=== PATIENT | female | born 1945 | race Caucasian/White ===

== ENCOUNTER → 2017-10-10 | Outpatient (CLI) | payer MEDICARE, OTHER ==
[~2017-10-10] MED LIST: CODACE30 PO; RXCODACET PO
== END | disposition home or self-care (01) ==
LOC: LAB SHORT 13:00 → LAB 13:00
DX: N39.0 Urinary tract infection, site not specified (principal)
CPT/HCPCS: 87077; 87086; 87186

== ENCOUNTER → 2017-11-10 | Outpatient (CLI) | payer MEDICARE, OTHER | LOC: LAB SHORT 13:00 → LAB 13:00 | DX: R30.0 Dysuria (principal) | CPT/HCPCS: 87077; 87086; 87186 ==

== ENCOUNTER → 2018-09-02 | Outpatient (CLI) | payer MEDICARE, OTHER ==
[~2018-09-02] MED LIST changes: +ACYC400 PO; +AMOCLA500; +FLUC150A PO; +LOSA25 PO; +Metformin HCl850 MG PO; +PREMARIN VAGINAL CRE; +Pravastatin Sod40 MG PO; +Zofran Odt8 MG SL
== END | disposition home or self-care (01) ==
LOC: LAB SHORT 14:30 → LAB EV 14:30
DX: N12 Tubulo-interstitial nephritis, not specified as acute or chronic (principal)
CPT/HCPCS: 87077; 87086; 87186

== ENCOUNTER 2019-03-06 14:35 | Observation (INO) | payer MEDICARE, OTHER ==
[~2019-03-06] VITALS: Ht 162.6 cm; Wt 81.4 kg
[~2019-03-06 14:35] MED LIST changes: -Pravastatin Sod40 MG PO; +Pravastatin Sod80 MG PO
[2019-03-06 15:12] LABS: BASOPHILS ABSOLUTE AUTO 0.07 K/mm3 (0.00-0.23); BASOPHILS PERCENT AUTO 1 % (0-2); EOSINOPHILS ABSOLUTE AUTO 0.65 K/mm3 (0.00-0.68); EOSINOPHILS PERCENT AUTO 5 % (0-6); Hematocrit 48.9 % (33.0-51.0); Hemoglobin 15.2 g/dL (11.5-16.0); IMMATURE GRAN ABSOLUTE AUTO 0.08 K/mm3 (0.00-0.10); IMMATURE GRAN PERCENT AUTO 1 % (0-1); LYMPHOCYTES ABSOLUTE AUTO 1.75 K/mm3 (0.84-5.20); LYMPHOCYTES PERCENT AUTO 12 % (21-46); MONOCYTES ABSOLUTE AUTO 0.57 K/mm3 (0.16-1.47); MONOCYTES PERCENT AUTO 4 % (4-13); Mean Corpuscular HGB 28.4 pg (26.0-34.0); Mean Corpuscular HGB Conc 31.1 g/dL (31.5-36.5); Mean Corpuscular Volume 91 fL (80-100); Mean Platelet Volume 10.3 fL (9.1-12.4); NEUTROPHILS ABSOLUTE AUTO 11.09 K/mm3 (1.96-9.15); NEUTROPHILS PERCENT AUTO 78 % (41-73); Platelet Count 274 K/mm3 (150-400); RDW Standard Deviation 46.9 fL (35.1-46.3); Red Blood Cell Count 5.35 M/mm3 (3.80-5.20); White Blood Cell Count 14.21 K/mm3 (4.00-11.30)
[2019-03-06 15:33] LABS: Alanine Aminotransfer (ALT/SGP 49 U/L (12-78); Albumin, Blood 4.2 g/dL (3.4-5.0); Albumin/Globulin Ratio 0.9 (0.8-1.8); Alk Phos 97 U/L (50-136); Anion Gap 10 mmol/L (6-16); Aspartate Aminotrans (AST/SGOT 21 U/L (12-37); Bilirubin, Total 0.4 mg/dL (0.1-1.0); Blood Urea Nitrogen 15 mg/dL (8-24); Bun/Creatinine Ratio 20.5 (12.0-20.0); CO2, Blood 25 mmol/L (21-32); Calcium, Blood 9.8 mg/dL (8.5-10.1); Chloride, Blood 104 mmol/L (98-108); Creatinine, Blood 0.73 mg/dL (0.40-1.00); Globulin, Blood 4.5 g/dL (2.2-4.0); Glomerular Filtration Rate >60 (60-); Glucose, Blood 120 mg/dL (70-99); Potassium, Blood 3.6 mmol/L (3.5-5.5); Sodium, Blood 139 mmol/L (136-145); Total Protein, Blood 8.7 g/dL (6.4-8.2); Troponin I <0.015 ng/mL (0.000-0.040)
[2019-03-06] MEDS ORDERED: Diflucan100 MG (16:54)
[2019-03-06] MEDS ORDERED: THERA-D2000 UNIT PO (16:55)
[2019-03-06] MEDS ORDERED: ESTROVEN PO (17:24)
--- NOTE | 2019-03-07 04:16 | NUR ---
SHIFT SUMMARY A/O, ABLE TO MAKE NEEDS KNOWN. COOPERATIVE WITH CARE. CALLS AND ANSWERS QUESTIONS APPROPRIATELY. NO C/O PAIN/DISCOMFORT T/O SHIFT. 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 NPO AFTER MIDNIGHT. 1L NS RUNNING TO LAC @ 75 ML/HR. NO ACUTE CHANGES NOTED OVERNIGHT. VSS/AFEBRILE. 1P ASSIST TO THE BATHROOM. BED IN LOWEST POSITION. CALL LIGHT AND BELONGINGS WITHIN REACH. WCTM. REPORT TO ONCOMING RN.
[2019-03-07 06:43] LABS: Hematocrit 40.1 % (33.0-51.0); Hemoglobin 12.5 g/dL (11.5-16.0); Mean Corpuscular HGB 28.5 pg (26.0-34.0); Mean Corpuscular HGB Conc 31.2 g/dL (31.5-36.5); Mean Corpuscular Volume 92 fL (80-100); Platelet Count 235 K/mm3 (150-400); RDW Coefficient Variation 14.1 % (11.7-14.2); RDW Standard Deviation 47.5 fL (35.1-46.3); Red Blood Cell Count 4.38 M/mm3 (3.80-5.20); White Blood Cell Count 11.02 K/mm3 (4.00-11.30)
[2019-03-07 07:01] LABS: Troponin I <0.015 ng/mL (0.000-0.040)
[2019-03-07 07:02] LABS: Alanine Aminotransfer (ALT/SGP 39 U/L (12-78); Albumin, Blood 3.1 g/dL (3.4-5.0); Alk Phos 67 U/L (50-136); Anion Gap 6 mmol/L (6-16); Aspartate Aminotrans (AST/SGOT 11 U/L (12-37); Bilirubin, Total 0.8 mg/dL (0.1-1.0); Blood Urea Nitrogen 14 mg/dL (8-24); Bun/Creatinine Ratio 19.5 (12.0-20.0); CHOL/HDL RATIO 2.7; CO2, Blood 26 mmol/L (21-32); Calcium, Blood 8.4 mg/dL (8.5-10.1); Chloride, Blood 110 mmol/L (98-108); Cholesterol 135 mg/dL (50-200); Creatinine, Blood 0.72 mg/dL (0.40-1.00); Glomerular Filtration Rate >60 (60-); Glucose, Blood 117 mg/dL (70-99); HDL Cholesterol 50 mg/dL (>39); LDL/HDL RATIO 1.3; Low Density Lipoprotein Chol 65 mg/dL (0-110); Potassium, Blood 4.2 mmol/L (3.5-5.5); Sodium, Blood 142 mmol/L (136-145); Triglycerides 100 mg/dL (30-160); Very Low Density Lipoprot Chol 20 mg/dL (6-32)
[2019-03-07 07:04] LABS: Albumin/Globulin Ratio 0.9 (0.8-1.8); Globulin, Blood 3.3 g/dL (2.2-4.0); Total Protein, Blood 6.4 g/dL (6.4-8.2)
--- NOTE | 2019-03-07 09:49 | NUR ---
Echocardiogram completed.
--- NOTE | 2019-03-07 16:03 | NUR ---
SHIFT SUMMARY PT AWAKE AT START OF SHIFT; NPO SINCE ADMISSION WAITING FOR FURTHER CARDIAC WORK UP. DR FELIX NOTIFIED R/T TESTS TO BE DONE. DR FELIX CALLED TO REPORT ORDERS FOR STRESS TEST PLACED SO PT COULD BE INFORMED. NUC MED CALLED TO PUT PT ON SCHEDULE AND LATER BE ABLE TO EAT LUNCH. 2ND PART OF STRESS TEST TO BE DONE IN AM. PT CAN HAVE EARLY BREAKFAST BEFORE 0800 AND NO CAFFEINE. CE NEG TO PRESENT. PT HAS BEEN RESTING QUIETLY IN THRU OUT THE DAY, WHEN NOT IN TESTING. MULTPLE VISITORS TO . PT IS INDEPENDENT TO BTHRM. HANS AND CO-OP. NO FURTHER C/O CP SINCE ADMIT. CALL LT IN REACH.
--- NOTE | 2019-03-08 04:28 | NUR ---
SHIFT SUMMARY PATIENT HAD NO ACUTE CHANGES OBSERVED. AXOX 4 AND INDEPENDENT IN THE ROOM. PIV REMAINS INTACT. DENIES CHEST PAIN, SOB, AND N/V. NPO> 8 AM. PATIENT CAN HAVE EARLY BREAKFAST. LINE CONTROLLER REPORTS NSR 66. VISITORS T/O FIRST PART OF SHIFT. VSS/AFEBRILE.SECOND PART OF STRESS TEST TODAY. COOPERATIVE WITH CARE. CALL LIGHT IN REACH. BED IN LOWEST POSITION. WILL CONTINUE TO MONITOR UNTIL DAY SHIFT NURSE ASSUME CARE.
--- NOTE | 2019-03-08 18:22 | NUR ---
PT TO DISCHARGE HOME. SERAFIN REMOVED, NO SS OF INFECTION NOTED. NURSE WENT OVER DISCHARGE PAPERS WITH PATIENT. NO NEW MEDS. EDUCATED PATIENT REGARDING FOLLOWING UP WITH PCP. [facility] TO CALL TO MAKE APPOINTMENT WITH PT. PATIENT DRESSED BY SELF AND WAS ABLE TO WALK OUT WITH STAFF.
== END 2019-03-08 18:14 | disposition home or self-care (01) ==
LOC: ER 14:35 → MEDS 14:36
PROVIDERS: Physician Assistant; ADMIT Internal Medicine
DX: R07.89 Other chest pain (principal); I10 Essential (primary) hypertension; E78.5 Hyperlipidemia, unspecified; E11.9 Type 2 diabetes mellitus without complications; E55.9 Vitamin D deficiency, unspecified; R19.7 Diarrhea, unspecified; G47.33 Obstructive sleep apnea (adult) (pediatric); R10.11 Right upper quadrant pain; E66.9 Obesity, unspecified; Z88.1 Allergy status to other antibiotic agents; Z88.2 Allergy status to sulfonamides; Z88.8 Allergy status to other drugs, medicaments and biological substances; Z68.30 Body mass index [BMI] 30.0-30.9, adult
CPT/HCPCS: 36415; 71045; 71046; 76705; 78452; 80053; 80061; 82947; 83036; 83690; 84484; 85025; 85027; 85379; 85651; 93005; 93010; 93017; 93306; 94762; 96374; 96375; 96376; 99285-25; A9270; A9500; C9113; G0378; J2405; J2785; J7030

== ENCOUNTER → 2019-12-11 | Outpatient (CLI) | payer MEDICARE, OTHER ==
[~2019-12-11] MED LIST changes: +Diflucan100 MG; +ESTROVEN PO; +THERA-D2000 UNIT PO
== END | disposition home or self-care (01) ==
LOC: LAB SHORT 11:00 → LAB EV 11:00
DX: R30.9 Painful micturition, unspecified (principal)
CPT/HCPCS: 87077; 87086; 87186

== ENCOUNTER 2020-02-11 09:53 | Inpatient (IN) | payer MEDICARE, OTHER ==
[~2020-02-11] VITALS: Ht 162.6 cm; Wt 82.7 kg
[~2020-02-11 09:53] MED LIST changes: -ESTROVEN PO; -THERA-D2000 UNIT PO
[2020-02-11 10:28] LABS: BASOPHILS ABSOLUTE AUTO 0.05 K/mm3 (0.00-0.23); BASOPHILS PERCENT AUTO 0 % (0-2); EOSINOPHILS PERCENT AUTO 0 % (0-6); Hematocrit 37.7 % (33.0-51.0); IMMATURE GRAN ABSOLUTE AUTO 0.25 K/mm3 (0.00-0.10); IMMATURE GRAN PERCENT AUTO 1 % (0-1); LYMPHOCYTES ABSOLUTE AUTO 0.66 K/mm3 (0.84-5.20); LYMPHOCYTES PERCENT AUTO 3 % (21-46); MONOCYTES ABSOLUTE AUTO 1.36 K/mm3 (0.16-1.47); MONOCYTES PERCENT AUTO 6 % (4-13); Mean Corpuscular HGB Conc 31.8 g/dL (31.5-36.5); Mean Corpuscular Volume 88 fL (80-100); NEUTROPHILS ABSOLUTE AUTO 19.03 K/mm3 (1.96-9.15); NEUTROPHILS PERCENT AUTO 89 % (41-73); Platelet Count 206 K/mm3 (150-400); RDW Coefficient Variation 14.6 % (11.7-14.2); RDW Standard Deviation 46.8 fL (35.1-46.3); Red Blood Cell Count 4.28 M/mm3 (3.80-5.20); White Blood Cell Count 21.35 K/mm3 (4.00-11.30)
[2020-02-11 10:44] LABS: Albumin, Blood 3.3 g/dL (3.4-5.0); Albumin/Globulin Ratio 0.8 (0.8-1.8); Bilirubin, Total 0.7 mg/dL (0.1-1.0); Bun/Creatinine Ratio 19.5 (12.0-20.0); Calcium, Blood 8.9 mg/dL (8.5-10.1); Creatinine, Blood 1.28 mg/dL (0.40-1.00); Globulin, Blood 4.1 g/dL (2.2-4.0); Potassium, Blood 3.6 mmol/L (3.5-5.5); Total Protein, Blood 7.4 g/dL (6.4-8.2)
[2020-02-11 10:58] LABS: Source, Urine Clean Catch
[2020-02-11 11:02] LABS: Bilirubin, Urine Neg (Neg); Blood, Urine 4+ (Neg); Glucose Qualitative, Urine 1+ (Neg); Ketones, Urine Neg (Neg); Leukocyte Esterase, Urine 3+ (Neg); Nitrite, Urine Neg (Neg); Protein, Urine 2+ (Neg); Urobilinogen, Urine NORM (Normal)
[2020-02-11 11:10] LABS: Appearance, Urine Cloudy (Clear); Color, Urine Yellow (P-Yellow)
[2020-02-11 11:16] LABS: Bacteria Many /hpf; Squamous Epithelial Cells Mod /hpf (Few)
[2020-02-11 11:18] LABS: White Blood Cells, Urine 50-100 /hpf (0-5)
[2020-02-11] MEDS ORDERED: Vitamin D2000 UNIT PO (12:54)
[2020-02-11] MEDS ORDERED: ESTROVEN PO (12:54)
--- NOTE | 2020-02-11 18:18 | NUR ---
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 PT REPORTS MALIN AND MEDICATED PER EMAR. PT C/O BEING COLD AND WARM BLANKETS PROVIDED. PT LINE RUNNING AND WNL. ALERT AND ORIENTED. STAFF WILL CONT TO MONITOR.
[2020-02-12 05:11] LABS: BASOPHILS ABSOLUTE AUTO 0.02 K/mm3 (0.00-0.23); BASOPHILS PERCENT AUTO 0 % (0-2); Hematocrit 34.6 % (33.0-51.0); Hemoglobin 10.9 g/dL (11.5-16.0); LYMPHOCYTES ABSOLUTE AUTO 0.56 K/mm3 (0.84-5.20); LYMPHOCYTES PERCENT AUTO 5 % (21-46); MONOCYTES ABSOLUTE AUTO 0.57 K/mm3 (0.16-1.47); MONOCYTES PERCENT AUTO 5 % (4-13); Mean Corpuscular HGB 27.9 pg (26.0-34.0); Mean Corpuscular HGB Conc 31.5 g/dL (31.5-36.5); Mean Corpuscular Volume 89 fL (80-100); Mean Platelet Volume 10.8 fL (9.1-12.4); Platelet Count 174 K/mm3 (150-400); RDW Coefficient Variation 14.8 % (11.7-14.2); RDW Standard Deviation 48.1 fL (35.1-46.3); White Blood Cell Count 11.55 K/mm3 (4.00-11.30)
[2020-02-12 05:13] LABS: EOSINOPHILS ABSOLUTE AUTO 0.01 K/mm3 (0.00-0.68); EOSINOPHILS PERCENT AUTO 0 % (0-6); IMMATURE GRAN ABSOLUTE AUTO 0.06 K/mm3 (0.00-0.10); IMMATURE GRAN PERCENT AUTO 1 % (0-1); NEUTROPHILS ABSOLUTE AUTO 10.33 K/mm3 (1.96-9.15); NEUTROPHILS PERCENT AUTO 90 % (41-73)
--- NOTE | 2020-02-12 05:27 | NUR ---
SHIFT SUMMARY LYING IN SEMI FOWLERS WITH EYES CLOSED. SPIKED A LOW GRADE THIS SHIFT, TREATED WITH TYLENOL. C/O ABD, BACK, AND MALIN, ICE PACKS AND HEATING PADS APPLIED FOR COMFORT, STATES THAT THEY HELPED. NO FURTHER SIGNIFICANT CHANGES NOTED. DENIES FURTHER NEEDS OR WANTS AT THIS TIME. SAFETY MEASURES IN PLACE. WILL CONTINUE TO MONITOR AND GIVE HAND OFF TO ONCOMING SHIFT USING SBAR.
[2020-02-12 05:37] LABS: Anion Gap 9 mmol/L (6-16); Blood Urea Nitrogen 17 mg/dL (8-24); Bun/Creatinine Ratio 20.5 (12.0-20.0); CO2, Blood 24 mmol/L (21-32); Calcium, Blood 8.2 mg/dL (8.5-10.1); Chloride, Blood 105 mmol/L (98-108); Creatinine, Blood 0.83 mg/dL (0.40-1.00); Glomerular Filtration Rate >60 (60-); Glucose, Blood 142 mg/dL (70-99); Potassium, Blood 3.4 mmol/L (3.5-5.5); Sodium, Blood 138 mmol/L (136-145)
--- NOTE | 2020-02-12 19:26 | NUR ---
SHIFT SUMMARY PT AxOx4. PLEASANT AND COOPERATIVE WITH CARE. SBA TO BATHROOM FOR GENERAL WEAKNESS. PT C/O HEADACHE AND R LEG PAIN T/O THE DAY. MEDICATED PER EMAR, & ICE AND HEAT APPLIED FOR RELIEF. PT HAD KIDNEY/BLADDER US TODAY. MORE IV FLUIDS ORDERED. BLOOD SUGARS ACHS AND INSULIN ORDERED WITH LOW SS. NEURONTIN ORDERED TO START TONIGHT FOR LEG PAIN. PT DAUGHTER, JERICHO IN ROOM TODAY. DISCUSSED PLAN WITH PT AND DAUGHTER. PT HAD GOOD APPETITE AND GOOD FLUID INTAKE TODAY. REPORTS FREQUENT URINATION. PT CURRENTLY RESTING IN BED WITH CALL LIGHT IN REACH. DENIES ANY NEEDS AT THIS TIME. VITALS REVIEWED. SHOWED LOW GRADE FEVER THIS SHIFT. DR NOTIFIED.
--- NOTE | 2020-02-12 22:25 | NUR ---
AWAKE AT HS. ACCOMPANIED TO BATHROOM EARLIER FOR SAFETY. ALERT AND ORIENTED. CALL LIGHT IN REACH
--- NOTE | 2020-02-13 03:54 | NUR ---
SHIFT SUMMARY HAS BEEN RESTING QUIETLY WITH FEW INTERRUPTIONS THIS SHIFT. IVF INFUSING PER MD ORDERS - SEE MAR FOR DETAILS. UP TO BATHROOM WITH STAND BY ASSIST FOR SAFETY. CALL LIGHT IN REACH. NO C/O VOICED AT THIS TIME.
[2020-02-13 04:43] LABS: BASOPHILS ABSOLUTE AUTO 0.02 K/mm3 (0.00-0.23); BASOPHILS PERCENT AUTO 0 % (0-2); EOSINOPHILS ABSOLUTE AUTO 0.14 K/mm3 (0.00-0.68); EOSINOPHILS PERCENT AUTO 2 % (0-6); Hemoglobin 10.9 g/dL (11.5-16.0); IMMATURE GRAN ABSOLUTE AUTO 0.05 K/mm3 (0.00-0.10); IMMATURE GRAN PERCENT AUTO 1 % (0-1); LYMPHOCYTES ABSOLUTE AUTO 1.06 K/mm3 (0.84-5.20); LYMPHOCYTES PERCENT AUTO 14 % (21-46); MONOCYTES ABSOLUTE AUTO 0.86 K/mm3 (0.16-1.47); MONOCYTES PERCENT AUTO 12 % (4-13); Mean Corpuscular HGB 27.6 pg (26.0-34.0); Mean Corpuscular HGB Conc 31.1 g/dL (31.5-36.5); Mean Corpuscular Volume 89 fL (80-100); NEUTROPHILS ABSOLUTE AUTO 5.38 K/mm3 (1.96-9.15); NEUTROPHILS PERCENT AUTO 72 % (41-73); Platelet Count 186 K/mm3 (150-400); RDW Coefficient Variation 14.6 % (11.7-14.2); RDW Standard Deviation 47.7 fL (35.1-46.3); Red Blood Cell Count 3.95 M/mm3 (3.80-5.20); White Blood Cell Count 7.51 K/mm3 (4.00-11.30)
[2020-02-13 05:02] LABS: Alanine Aminotransfer (ALT/SGP 105 U/L (12-78); Albumin, Blood 2.3 g/dL (3.4-5.0); Albumin/Globulin Ratio 0.6 (0.8-1.8); Alk Phos 107 U/L (50-136); Anion Gap 4 mmol/L (6-16); Aspartate Aminotrans (AST/SGOT 90 U/L (12-37); Bilirubin, Total 0.6 mg/dL (0.1-1.0); Blood Urea Nitrogen 13 mg/dL (8-24); Bun/Creatinine Ratio 16.5 (12.0-20.0); CO2, Blood 30 mmol/L (21-32); Calcium, Blood 8.3 mg/dL (8.5-10.1); Chloride, Blood 106 mmol/L (98-108); Creatinine, Blood 0.79 mg/dL (0.40-1.00); Glomerular Filtration Rate >60 (60-); Glucose, Blood 131 mg/dL (70-99); Magnesium, Blood 1.8 mg/dL (1.6-2.4); Phosphorus, Blood 2.2 mg/dL (2.5-4.9); Potassium, Blood 3.7 mmol/L (3.5-5.5); Sodium, Blood 140 mmol/L (136-145); Total Protein, Blood 6.3 g/dL (6.4-8.2)
--- NOTE | 2020-02-13 16:02 | NUR ---
PATIENT FEELING BETTER TODAY. CONTINUES TO HAVE R CALF PAIN, TYLENOL AND HOT PACK USED TO TREAT. A/OX4, UP INDEPENDENTLY IN ROOM. LUNGS CLEAR, ON RA. LAST BM 02/09, PATIENT DRANK SOME PRUNE JUICE TODAY. WALKED IN HALLS WITH FWW AND SBA. 22G IV TO R HAND WNL, LR @ 75ML/HR INFUSING. ROCEPHIN DAILY TO TREAT UTI. CALM AND COOPERATIVE WITH CARE, PLEASANT WITH CARE.
--- NOTE | 2020-02-14 05:36 | NUR ---
SHIFT SUMMARY HAS BEEN RSETING QUIETLY WITH FEW INTERRUPTIONS. IVF OF LR CONTINUES TO INFUSE AT 75 ML/HR. CALL LIGHT IN REACH
--- NOTE | 2020-02-14 08:43 | NUR ---
CARE COORDINATION REFERRAL - ADMIT: 02/11/20 DISCHARGE: DX: SEPSIS DUE TO UTI CC: ADMIT: 03/06/19 DISCHARGE: 03/08/19 DX: CP ELAINE CALL: MET WITH MARGOT, CALL HER AT HOME FOR ELAINE RESIDENCE:HOME ALONE CAREGIVER: JERICHO STORM (CHILD): CAROL PHAN (CHILD): DX: HTN, [place], DM-TYPE 2, HYPERLIPIDEMIA DME: CPAP MACHINE AND SUPPLIES, PLANTAR FASCIITIS NIGHT SPLINT CCM: NONE HOME HEALTH: NONE
[2020-02-14] MEDS ORDERED: ACET325 PO (12:31)
[2020-02-14] MEDS ORDERED: GABA300 PO (12:33)
[2020-02-14] MEDS ORDERED: VISBIOME PROBIOTIC PO (12:33)
[2020-02-14] MEDS ORDERED: CEFP200 PO (12:34)
[2020-02-14] MEDS ORDERED: DICLOFENAC SOD100 G1 TOP (12:35)
--- NOTE | 2020-02-14 14:40 | NUR ---
DISCHARGED PT & DAUGHTER EDUCATED ON DC INSTRUCTIONS, INCLUDING NEW MEDS AND FOLLOW UP APPOINTMENTS. NO CHANGES IN ASSESSMENT AT THIS TIME. [facility] TO CONTACT PT FOR FOLLOW UP APPOINTMENT. PT & DAUGHTER STATE NO FURTHER QUESTIONS AT THIS TIME. PT WHEELED OUT BY AIDE & DRIVEN HOME BY DAUGHTER.
--- NOTE | 2020-02-14 18:10 | NUR ---
ADMIT: 02/11/20 DISCHARGE:02/14/20 DX: Sepsis due to UTI CC: CPEABODY ADMIT: 03/06/19 DISCHARGE: 03/08/19 DX: CP ELAINE CALL: Met with Annette, call her at home for elaine. RESIDENCE:HOME ALONE CAREGIVER: JERICHO STORM (CHILD): CAROL HPAN (CHILD): DX: HTN, [place], DM-type 2, hyperlipidemia DME: CPAP MACHINE AND SUPPLIES, PLANTAR FASCIITIS NIGHT SPLINT, cane CCM: none HOME HEALTH: 02/14/20 NOT HOMEBOUND SUMMARY: Admit 02/11/20 Discharge 02/14/20 Met with Annette in her room prior to discharge. Daughter will pick her up and take her to pharmacy for new meds out patient PT can be ordered by pcp at follow up visit in 1 week discussed elaine call or Wednesday. will schedule 1 week follow up from Discharge. cp 02/12/29 OT EVAL- Mobilizing in room & completing ADls w/ supervison/Talbot & tolerating activity fairly w/ pain being main barrier. Presenting near baseline in reguards to ADLs, no further acute OT indicated at this time. PT eval 02/12 PT Follow-Up/ Outpatient Setting/ Home Caregiver Assist/ Supervision Equipment/ Cane Dr Martel, elen discharge Wednesday, home.
== END 2020-02-14 14:40 | disposition home or self-care (01) | DRG 872 ==
LOC: ER 09:53 → MEDS 14:22
PROVIDERS: Emergency Medicine; Hospitalist; ADMIT Family Medicine
DX: A41.59 Other Gram-negative sepsis (principal); E87.2 Acidosis; N12 Tubulo-interstitial nephritis, not specified as acute or chronic; W18.30XA Fall on same level, unspecified, initial encounter; Y92.9 Unspecified place or not applicable; G47.33 Obstructive sleep apnea (adult) (pediatric); E11.9 Type 2 diabetes mellitus without complications; B00.1 Herpesviral vesicular dermatitis; M79.661 Pain in right lower leg; I51.7 Cardiomegaly; Z79.84 Long term (current) use of oral hypoglycemic drugs
CPT/HCPCS: 36415; 74022; 76770; 80048; 80053; 81001; 82947; 83605; 83735; 84100; 85025; 87040; 87077; 87186; 93005; 93010; 93971; 96365; 97110; 97161; 97165; 99285-25; A9270; A9270-GY; J0696; J1650; J7030; J7050; J7120

== ENCOUNTER → 2020-03-18 | Outpatient (CLI) | payer MEDICARE, OTHER ==
[~2020-03-18] MED LIST changes: +ACET325 PO; +CEFP200 PO; +DICLOFENAC SOD100 G1 TOP; +ESTROVEN PO; +GABA300 PO; +IBUP400 PO; +ONDA4ODT MM; +ONDA4ODT SL; +Percocet 5-3251 EACH PO; +Ultram50 MG PO; +VISBIOME PROBIOTIC PO; +Vitamin D2000 UNIT PO
[2020-03-18 12:50] LABS: Source, Urine Clean Catch
[2020-03-18 15:15] LABS: Appearance, Urine Turbid (Clear); Bilirubin, Urine Neg (Neg); Blood, Urine 1+ (Neg); Color, Urine Yellow (P-Yellow); Glucose Qualitative, Urine Neg (Neg); Ketones, Urine Neg (Neg); Leukocyte Esterase, Urine 2+ (Neg); Nitrite, Urine Neg (Neg); Protein, Urine Neg (Neg); Specific Gravity, Urine 1.025 (1.003-1.022); Urobilinogen, Urine NORM (Normal)
[2020-03-18 15:36] LABS: Amorphous Heavy (0-Heavy); Bacteria Few /hpf; Red Blood Cells, Urine 0-2 /hpf (0-2); Squamous Epithelial Cells Few /hpf (Few)
== END | disposition home or self-care (01) ==
LOC: LAB 10:05 → LAB SHORT 10:05
PROVIDERS: Family Medicine
DX: N39.0 Urinary tract infection, site not specified (principal)
CPT/HCPCS: 81001; 87077; 87086; 87186

== ENCOUNTER 2020-05-09 08:42 | Emergency (ER) | payer MEDICARE, OTHER ==
[~2020-05-09] VITALS: Ht 160 cm; Wt 77.1 kg
[~2020-05-09 08:42] MED LIST changes: -IBUP400 PO; -ONDA4ODT MM; -ONDA4ODT SL; -Percocet 5-3251 EACH PO; -Ultram50 MG PO
[2020-05-09 09:29] LABS: Source, Urine Clean Catch
[2020-05-09 09:35] LABS: BASOPHILS ABSOLUTE AUTO 0.04 K/mm3 (0.00-0.23); BASOPHILS PERCENT AUTO 1 % (0-2); EOSINOPHILS ABSOLUTE AUTO 0.17 K/mm3 (0.00-0.68); EOSINOPHILS PERCENT AUTO 2 % (0-6); Hematocrit 41.2 % (33.0-51.0); Hemoglobin 13.1 g/dL (11.5-16.0); IMMATURE GRAN ABSOLUTE AUTO 0.04 K/mm3 (0.00-0.10); IMMATURE GRAN PERCENT AUTO 1 % (0-1); LYMPHOCYTES ABSOLUTE AUTO 1.88 K/mm3 (0.84-5.20); LYMPHOCYTES PERCENT AUTO 22 % (21-46); MONOCYTES ABSOLUTE AUTO 0.52 K/mm3 (0.16-1.47); MONOCYTES PERCENT AUTO 6 % (4-13); Mean Corpuscular HGB 27.9 pg (26.0-34.0); Mean Corpuscular HGB Conc 31.8 g/dL (31.5-36.5); Mean Corpuscular Volume 88 fL (80-100); Mean Platelet Volume 9.4 fL (9.1-12.4); NEUTROPHILS ABSOLUTE AUTO 5.84 K/mm3 (1.96-9.15); NEUTROPHILS PERCENT AUTO 69 % (41-73); Platelet Count 312 K/mm3 (150-400); RDW Coefficient Variation 13.5 % (11.7-14.2); RDW Standard Deviation 43.8 fL (35.1-46.3); White Blood Cell Count 8.49 K/mm3 (4.00-11.30)
[2020-05-09 09:38] LABS: Bilirubin, Urine Neg (Neg); Blood, Urine 5+ (Neg); Glucose Qualitative, Urine Neg (Neg); Ketones, Urine 1+ (Neg); Leukocyte Esterase, Urine 2+ (Neg); Nitrite, Urine Neg (Neg); Protein, Urine 3+ (Neg); Specific Gravity, Urine 1.025 (1.003-1.022); Urobilinogen, Urine NORM (Normal)
[2020-05-09 09:47] LABS: Appearance, Urine Cloudy (Clear); Color, Urine Brown (P-Yellow)
[2020-05-09 09:49] LABS: Red Blood Cells, Urine TNTC /hpf (0-2)
[2020-05-09 09:50] LABS: Bacteria Many /hpf; Squamous Epithelial Cells Mod /hpf (Few)
[2020-05-09 10:05] LABS: Alanine Aminotransfer (ALT/SGP 31 U/L (12-78); Albumin, Blood 3.6 g/dL (3.4-5.0); Albumin/Globulin Ratio 0.8 (0.8-1.8); Alk Phos 76 U/L (50-136); Anion Gap 8 mmol/L (6-16); Aspartate Aminotrans (AST/SGOT 14 U/L (12-37); Bilirubin, Total 0.5 mg/dL (0.1-1.0); Blood Urea Nitrogen 16 mg/dL (8-24); Bun/Creatinine Ratio 22.3 (12.0-20.0); CO2, Blood 23 mmol/L (21-32); Calcium, Blood 9.2 mg/dL (8.5-10.1); Chloride, Blood 108 mmol/L (98-108); Creatinine, Blood 0.72 mg/dL (0.40-1.00); Globulin, Blood 4.4 g/dL (2.2-4.0); Glomerular Filtration Rate >60 (60-); Glucose, Blood 156 mg/dL (70-99); Potassium, Blood 3.9 mmol/L (3.5-5.5); Sodium, Blood 139 mmol/L (136-145)
[2020-05-09] MEDS ORDERED: ONDA4ODT SL (11:29)
[2020-05-09] MEDS ORDERED: IBUP400 PO (11:29)
[2020-05-09] MEDS ORDERED: Percocet 5-3251 EACH PO (11:29)
[2020-06-16] MEDS ORDERED: ONDA4ODT MM (23:34)
[2020-06-16] MEDS ORDERED: Ultram50 MG PO (23:48)
== END 2020-05-09 11:39 | disposition home or self-care (01) ==
LOC: ER 08:42
PROVIDERS: Physician Assistant
DX: N13.2 Hydronephrosis with renal and ureteral calculous obstruction (principal); I10 Essential (primary) hypertension; E11.9 Type 2 diabetes mellitus without complications; Z88.1 Allergy status to other antibiotic agents; Z88.2 Allergy status to sulfonamides; Z79.899 Other long term (current) drug therapy; Z79.84 Long term (current) use of oral hypoglycemic drugs; Z88.8 Allergy status to other drugs, medicaments and biological substances
CPT/HCPCS: 36415; 74176; 80053; 81001; 83690; 84484; 85025; 87077; 87086; 87186; 93005; 93010; 96374; 96375; 99284-25; J1885; J2405

== ENCOUNTER → 2020-07-10 | Outpatient (CLI) | payer MEDICARE, OTHER ==
[~2020-07-10] MED LIST changes: +IBUP400 PO; +ONDA4ODT MM; +ONDA4ODT SL; +Percocet 5-3251 EACH PO; +Ultram50 MG PO
== END ==
LOC: LAB 16:14 → LAB SHORT 16:14
DX: R35.0 Frequency of micturition (principal)
CPT/HCPCS: 87077; 87086; 87186

== ENCOUNTER → 2020-08-08 | Outpatient (CLI) | payer MEDICARE, OTHER | END | disposition home or self-care (01) | LOC: LAB SHORT 15:00 → LAB 15:00 | DX: R30.9 Painful micturition, unspecified (principal) | CPT/HCPCS: 87077; 87086; 87186 ==

== ENCOUNTER → 2020-11-20 | Outpatient (CLI) | payer MEDICARE, OTHER | END | disposition home or self-care (01) | LOC: LAB SHORT 18:23 | DX: N20.0 Calculus of kidney (principal) | CPT/HCPCS: 87086 ==

== ENCOUNTER → 2021-05-30 | Outpatient (CLI) | payer MEDICARE, OTHER | END | disposition home or self-care (01) | LOC: LAB SHORT 11:15 | DX: N39.0 Urinary tract infection, site not specified (principal) | CPT/HCPCS: 87077; 87086; 87186 ==

== ENCOUNTER → 2022-01-03 | Outpatient (CLI) | payer MEDICARE, OTHER | LOC: LAB SHORT 12:43 | DX: R30.0 Dysuria (principal) | CPT/HCPCS: 87086 ==

== ENCOUNTER 2022-01-28 22:20 | Emergency (ER) | payer MEDICARE, OTHER ==
[~2022-01-28] VITALS: Ht 160 cm; Wt 83.1 kg
== END 2022-01-29 01:03 | disposition home or self-care (01) ==
LOC: ER 22:20
DX: S61.412A Laceration without foreign body of left hand, initial encounter (principal); I10 Essential (primary) hypertension; E11.9 Type 2 diabetes mellitus without complications; Z23 Encounter for immunization; Z88.1 Allergy status to other antibiotic agents; Z88.2 Allergy status to sulfonamides; Z88.8 Allergy status to other drugs, medicaments and biological substances; Z79.899 Other long term (current) drug therapy; Z79.84 Long term (current) use of oral hypoglycemic drugs; W26.8XXA Contact with other sharp object(s), not elsewhere classified, initial encounter
CPT/HCPCS: 90714

== ENCOUNTER → 2022-02-02 | Outpatient (CLI) | payer MEDICARE, OTHER | LOC: LAB SHORT 08:51 → LAB 08:51 | DX: N20.2 Calculus of kidney with calculus of ureter (principal) | CPT/HCPCS: 81050 ==

== ENCOUNTER → 2022-04-02 | Outpatient (CLI) | payer MEDICARE, OTHER | END | disposition home or self-care (01) | LOC: LAB 13:35 → LAB SHORT 13:35 | DX: N39.0 Urinary tract infection, site not specified (principal) | CPT/HCPCS: 87086 ==

== ENCOUNTER → 2022-06-29 | Outpatient (CLI) | payer MEDICARE, OTHER ==
[2022-06-29 15:53] LABS: Microalb/Creat Ratio UR, Rand 292.661 mg/g (0.000-30.000)
== END | disposition home or self-care (01) ==
LOC: LAB 10:00 → LAB SHORT 10:00
PROVIDERS: Family Medicine
DX: E11.9 Type 2 diabetes mellitus without complications (principal); R30.9 Painful micturition, unspecified
CPT/HCPCS: 82043; 82570; 87077; 87086; 87186

== ENCOUNTER 2022-07-16 22:01 | Inpatient (IN) | payer MEDICARE, OTHER ==
[~2022-07-16] VITALS: Ht 162.6 cm; Wt 83.5 kg
[2022-07-16 22:30] LABS: BASOPHILS ABSOLUTE AUTO 0.04 K/mm3 (0.00-0.23); BASOPHILS PERCENT AUTO 0 % (0-2); EOSINOPHILS PERCENT AUTO 1 % (0-6); Hematocrit 34.4 % (33.0-51.0); Hemoglobin 10.6 g/dL (11.5-16.0); IMMATURE GRAN ABSOLUTE AUTO 0.44 K/mm3 (0.00-0.10); IMMATURE GRAN PERCENT AUTO 2 % (0-1); LYMPHOCYTES ABSOLUTE AUTO 1.21 K/mm3 (0.84-5.20); LYMPHOCYTES PERCENT AUTO 5 % (21-46); MONOCYTES ABSOLUTE AUTO 0.58 K/mm3 (0.16-1.47); MONOCYTES PERCENT AUTO 2 % (4-13); Mean Corpuscular HGB 26.6 pg (26.0-34.0); Mean Corpuscular HGB Conc 30.8 g/dL (31.5-36.5); Mean Corpuscular Volume 86 fL (80-100); Mean Platelet Volume 9.5 fL (9.1-12.4); NEUTROPHILS ABSOLUTE AUTO 22.18 K/mm3 (1.96-9.15); NEUTROPHILS PERCENT AUTO 90 % (41-73); Platelet Count 505 K/mm3 (150-400); RDW Coefficient Variation 15.2 % (11.7-14.2); RDW Standard Deviation 48.3 fL (35.1-46.3); Red Blood Cell Count 3.99 M/mm3 (3.80-5.20); White Blood Cell Count 24.65 K/mm3 (4.00-11.30)
[2022-07-16 23:16] LABS: Albumin, Blood 2.7 g/dL (3.4-5.0); Albumin/Globulin Ratio 0.5 (0.8-1.8); Bilirubin, Total 0.9 mg/dL (0.1-1.0); Bun/Creatinine Ratio 21.8 (12.0-20.0); Calcium, Blood 8.6 mg/dL (8.5-10.1); Creatinine, Blood 1.01 mg/dL (0.40-1.00); Magnesium, Blood 1.5 mg/dL (1.6-2.4); Phosphorus, Blood 2.1 mg/dL (2.5-4.9); Potassium, Blood 4.5 mmol/L (3.5-5.5); Total Protein, Blood 7.7 g/dL (6.4-8.2)
[2022-07-16 23:18] LABS: Source, Urine Straight Cath
[2022-07-17] VITALS (66 sets, daily range): BP systolic 72–142; BP diastolic 28–92
[2022-07-17 00:32] LABS: Appearance, Urine Hazy (Clear); Bilirubin, Urine Neg (Neg); Blood, Urine 5+ (Neg); Color, Urine Yellow (P-Yellow); Glucose Qualitative, Urine 2+ (Neg); Ketones, Urine Neg (Neg); Leukocyte Esterase, Urine 1+ (Neg); Nitrite, Urine Neg (Neg); Protein, Urine 3+ (Neg); Specific Gravity, Urine 1.015 (1.003-1.022); Urobilinogen, Urine NORM (Normal)
[2022-07-17 00:45] LABS: Amorphous Light (0-Heavy); Bacteria Mod /hpf; Hyaline Casts 0-2 /lpf (0-2); Squamous Epithelial Cells Few /hpf (Few)
[2022-07-17 03:48] LABS: Source, Urine Foley catheter
[2022-07-17 04:52] LABS: Hemoglobin 8.8 g/dL (11.5-16.0); Mean Corpuscular HGB 27.2 pg (26.0-34.0); Mean Corpuscular HGB Conc 31.4 g/dL (31.5-36.5); Mean Corpuscular Volume 87 fL (80-100); Mean Platelet Volume 9.8 fL (9.1-12.4); Platelet Count 437 K/mm3 (150-400); RDW Coefficient Variation 15.3 % (11.7-14.2); RDW Standard Deviation 48.9 fL (35.1-46.3); Red Blood Cell Count 3.23 M/mm3 (3.80-5.20); White Blood Cell Count 28.28 K/mm3 (4.00-11.30)
[2022-07-17 05:02] LABS: Bilirubin, Urine Neg (Neg); Blood, Urine 5+ (Neg); Glucose Qualitative, Urine 2+ (Neg); Ketones, Urine Neg (Neg); Leukocyte Esterase, Urine 2+ (Neg); Nitrite, Urine Neg (Neg); Protein, Urine 3+ (Neg); Specific Gravity, Urine 1.015 (1.003-1.022); Urobilinogen, Urine NORM (Normal)
[2022-07-17 05:29] LABS: Albumin, Blood 2.2 g/dL (3.4-5.0); Albumin/Globulin Ratio 0.6 (0.8-1.8); Bilirubin, Total 0.8 mg/dL (0.1-1.0); Bun/Creatinine Ratio 20.1 (12.0-20.0); Calcium, Blood 7.7 mg/dL (8.5-10.1); Globulin, Blood 3.9 g/dL (2.2-4.0); Potassium, Blood 4.1 mmol/L (3.5-5.5); Total Protein, Blood 6.1 g/dL (6.4-8.2)
[2022-07-17 05:39] LABS: Appearance, Urine Hazy (Clear); Color, Urine Yellow (P-Yellow)
[2022-07-17 05:41] LABS: Amorphous Light (0-Heavy); Bacteria Few /hpf; Mucus Light (0-Heavy); Squamous Epithelial Cells Few /hpf (Few)
[2022-07-17 05:57] LABS: BAND PERCENT MAN 14 % (0-8); BASOPHILS PERCENT MAN 0 % (0-2); EOSINOPHILS PERCENT MAN 0 % (0-6); MONOCYTES ABSOLUTE MAN 0.56 K/mm3 (0.16-1.47); MONOCYTES PERCENT MAN 2 % (4-13); NEUTROPHILS ABSOLUTE MAN 27.71 K/mm3 (1.96-9.15); SEG NEUTROPHILS PERCENT MAN 84 % (41-73); TOTAL CELLS COUNTED 100
--- NOTE | 2022-07-17 06:49 | NUR ---
PATIENT TO ICU 5 FROM ER AT 0320. PATIENT IS ALERT AND ORIENTED X4. 02 SATS 98% ON 2L VIA NC, DENIES SOB. HR SR 80s, BP HYPOTENSIVE, LEVOPHED INF. CENTRAL LINE INSERTED IN RIGHT IJ. TEMP RODRIGUEZ PLACED, URINE CLOUDY SEDIMENT. PATIENT STATES LEFT FLANK PAIN, DENIES NEED FOR PAIN MEDS. CALL LIGHT IN REACH
--- NOTE | 2022-07-17 11:30 | NUR ---
FEVER PT WITH RAPID ESCALATION OF FEVER UP TO 105.4 AT THIS TIME. PT MED WITH TYLENOL AND ICE PACKS PLACED FEVER HAS CONTINUED TO INCREASE. RECTAL TEMP PROBE PLACED TO CONFIRM ESCALATION OF FEVER. DR MURGUIA NOTIFIED AT THIS TIME. NO NEW ORDERS RECIEVED. WILL CONTINUE TO MONITOR.
[2022-07-17] MEDS ORDERED: POTCIT10 PO (16:38)
[2022-07-17] MEDS ORDERED: CLIMARA1 EACH TOP (16:39)
[2022-07-17] MEDS ORDERED: TAMS.4ER PO (16:40)
--- NOTE | 2022-07-17 17:00 | NUR ---
SHIFT SUMMARY PT RESTING WELL THIS AFTERNOON. PT EASILY AROUSEABLE TO VERBAL STIMULI AND IS ALERT AND ORIENTED. PT NAUSEA AND COUGHING HAS SUBSIDED THIS AFTERNOON. PT WITH CENTRAL LINE TO RIJ C/D/I, LR INFUSING AT 150 ML/HR, LEVOPHED AT 4 MCG/HR, AND NS TKO. PT ON 2L O2 NC. VITAL SIGNS STABLE. RODRIGUEZ TEMP PROBE REMAINS IN PLACE WITH YELLOW OUTPUT WITH SEDIMENT NOTED. RECTAL TEMP PROBE REMAINS IN PLACE. PT REMAINS FEBRILE AT 101.0 AT THIS TIME, BUT HAS IMPROVED FROM TMAX OF 105.4 THIS SHIFT. ICE PACKS AND FAN REMAIN IN PLACE. PT WITHOUT ANY SHIVERING AT THIS TIME. PT FAMILY MEMBERS IN AND OUT THROUGHOUT THE SHIFT. WILL CONTINUE TO MONITOR AND REPORT OFF TO ONCOMING RN.
--- NOTE | 2022-07-17 20:07 | NUR ---
ASSUMED CARE AT 1900 PATIENT IS ALERT AND ORIENTED X4. 02 SATS 96% ON 2L VIA NC. HR 80s, BP STABLE WITH LEVOPHED INF. DENIES CP/PRESSURE. TEMP 99.7. TEMP RODRIGUEZ PATENT AND DRAINING YELLOW WITH SEDIMENT. LINEN AND GOWN CHANGE, PATIENT ABLE TO TURN SELF WITH MINIMAL ASSISTANCE. PATIENT ABLE TO TOLERATE PO MEDS. CALL LIGHT IN REACH
[2022-07-18] VITALS (68 sets, daily range): BP systolic 84–162; BP diastolic 32–115
[2022-07-18 03:12] LABS: Hematocrit 28.4 % (33.0-51.0); Hemoglobin 8.9 g/dL (11.5-16.0); Mean Corpuscular HGB 26.9 pg (26.0-34.0); Mean Corpuscular HGB Conc 31.3 g/dL (31.5-36.5); Mean Corpuscular Volume 86 fL (80-100); Mean Platelet Volume 9.7 fL (9.1-12.4); Platelet Count 364 K/mm3 (150-400); RDW Coefficient Variation 15.6 % (11.7-14.2); Red Blood Cell Count 3.31 M/mm3 (3.80-5.20)
[2022-07-18 03:35] LABS: Albumin/Globulin Ratio 0.5 (0.8-1.8); Bilirubin, Total 0.6 mg/dL (0.1-1.0); Bun/Creatinine Ratio 17.6 (12.0-20.0); Calcium, Blood 8.3 mg/dL (8.5-10.1); Creatinine, Blood 0.79 mg/dL (0.40-1.00); Globulin, Blood 4.2 g/dL (2.2-4.0); Magnesium, Blood 1.8 mg/dL (1.6-2.4); Potassium, Blood 4.3 mmol/L (3.5-5.5); Total Protein, Blood 6.2 g/dL (6.4-8.2)
[2022-07-18 04:07] LABS: BAND PERCENT MAN 11 % (0-8); BASOPHILS PERCENT MAN 0 % (0-2); EOSINOPHILS ABSOLUTE MAN 0.37 K/mm3 (0.00-0.68); EOSINOPHILS PERCENT MAN 2 % (0-6); LYMPHOCYTES ABSOLUTE MAN 0.37 K/mm3 (0.84-5.20); LYMPHOCYTES PERCENT MAN 2 % (21-46); MONOCYTES ABSOLUTE MAN 0.37 K/mm3 (0.16-1.47); MONOCYTES PERCENT MAN 2 % (4-13); NEUTROPHILS ABSOLUTE MAN 17.67 K/mm3 (1.96-9.15); SEG NEUTROPHILS PERCENT MAN 83 % (41-73); TOTAL CELLS COUNTED 100
--- NOTE | 2022-07-18 06:02 | NUR ---
SHIFT SUMMARY PATIENT IS ALERT AND ORIENTED X4. 02 SATS 97% ON 2L VIA NC. HR SR 80s, LEVOPHED REMAINS INF. TMAX 101.7, TYLENOL AND ICE PACK, TEMP NOW DOWN TO 99.3. RODRIGUEZ PATENT AND DRAINING TO GRAVITY, YELLOW WITH SEDIMENT. PATIENT INDEPENDENT WITH REPOSITIONING. CALL LIGHT IN REACH
--- NOTE | 2022-07-18 17:36 | NUR ---
SHIFT SUMMARY NO ACUTE CHANGES THIS SHIFT. PT HAS SLEPT OFF AND ON THROUGHOUT THE DAY. WHEN AWAKE PT IS ALERT AND ORIENTED. PT WITH PERSISTENT FEVERS THOUGHOUT THE SHIFT. PT MED WITH TYLENOL PRN AND ICEPACKS/FAN. VITAL SIGNS HAVE REMAINED STABLE. LEVOPHED TITRATED OFF THIS MORNING. PT REMAINS ON 2L O2 NC. LR INFUSING AT 100 ML/HR AND NS TKO. CENTRAL LINE TO RIJ REMAINS C/D/I. RODRIGUEZ TEMP PROBE REMAINS IN PLACE WITH CLOUDY YELLOW OUTPUT NOTED. PT SHIFTS SELF SIDE TO SIDE IN BED INDEPENDENTLY. MULTIPLE FAMILY MEMBERS VISITING THIS SHIFT. WILL CONTINUE TO MONITOR AND REPORT OFF TO ONCOMING RN.
--- NOTE | 2022-07-18 22:16 | NUR ---
ASSUMED CARE AT 1900 PATIENT IS ALERT AND ORIENTED X4. 02 SATS 97% ON 2L VIA NC. HR SR 80s, BP STABLE, LEVOPHED REMAINS OFF. TEMP RODRIGUEZ PATENT AND DRAINING TO GRAVITY. PATIENT INDEPENDENT WITH REPOSITIONING. CALL LIGHT IN REACH
[2022-07-19] VITALS (21 sets, daily range): BP systolic 104–139; BP diastolic 45–75
[2022-07-19 01:22] LABS: Vancomycin, Trough 8.4 ug/mL (5.0-10.0)
[2022-07-19 05:40] LABS: Hematocrit 26.5 % (33.0-51.0); Hemoglobin 8.4 g/dL (11.5-16.0); Mean Corpuscular HGB Conc 31.7 g/dL (31.5-36.5); Mean Corpuscular Volume 85 fL (80-100); Mean Platelet Volume 10.3 fL (9.1-12.4); Platelet Count 344 K/mm3 (150-400); RDW Coefficient Variation 15.7 % (11.7-14.2); RDW Standard Deviation 48.9 fL (35.1-46.3); Red Blood Cell Count 3.11 M/mm3 (3.80-5.20); White Blood Cell Count 12.39 K/mm3 (4.00-11.30)
--- NOTE | 2022-07-19 05:52 | NUR ---
SHIFT SUMMARY PATIENT IS ALERT AND ORIENTED X4. SLEPT MOST THE NIGHT. 02 SATS >95% ON 2L VIA NC. HR SR 80S. BP STABLE. MEDICATED FOR TMAX 101.7. RODRIGUEZ PATENT AND DRAINING. CALL LIGHT IN REACH
[2022-07-19 05:59] LABS: BAND PERCENT MAN 10 % (0-8); BASOPHILS PERCENT MAN 0 % (0-2); Bun/Creatinine Ratio 27.2 (12.0-20.0); Calcium, Blood 8.2 mg/dL (8.5-10.1); Creatinine, Blood 0.7 mg/dL (0.40-1.00); EOSINOPHILS ABSOLUTE MAN 0.12 K/mm3 (0.00-0.68); EOSINOPHILS PERCENT MAN 1 % (0-6); LYMPHOCYTES ABSOLUTE MAN 0.99 K/mm3 (0.84-5.20); LYMPHOCYTES PERCENT MAN 8 % (21-46); MONOCYTES ABSOLUTE MAN 0.99 K/mm3 (0.16-1.47); MONOCYTES PERCENT MAN 8 % (4-13); Magnesium, Blood 1.8 mg/dL (1.6-2.4); NEUTROPHILS ABSOLUTE MAN 10.28 K/mm3 (1.96-9.15); Phosphorus, Blood 2.1 mg/dL (2.5-4.9); Potassium, Blood 3.6 mmol/L (3.5-5.5); SEG NEUTROPHILS PERCENT MAN 73 % (41-73); TOTAL CELLS COUNTED 100
--- NOTE | 2022-07-19 11:38 | NUR ---
REASSESSMENT PT SPENT ABOUT 3 HOURS SITTING UP IN THE CHAIR THIS MORNING BEFORE SHE GOT TIRED AND WANTED BACK IN BED. SHE IS CURRENTLY LAYING DOWN, RESTING IN BED. SHE REMAINS ALERT AND ORIENTED. LUNGS ARE CLEAR BUT DIM IN THE BASES. SHE RECEIVED LASIX THIS MORNING AND HAD ABOUT 1.5L OUT AFTER. SR, BP STABLE. TEMPERATURE BACK UP TO 100.4F SO TYLENOL GIVEN. PT TOELRATED A FULL LIQUID DIET FOR BREAKFAST. NO COUGHING OR SIGNS OF ASPIRATION. SPOKE WITH DR. MURGUIA AND PLAN TO PLACE POWERGLIDE THIS AFTERNOON FOR ANTICIPATED 2 WEEKS OF IV ABX, THEN DC CENTRAL LINE. DR. MURGUIA ALSO GAVE OK TO DC RODRIGUEZ THIS AFTERNOON. PT'S LAINEY AT THE BEDSIDE WHEN DR. MURGUIA DID ROUNDS AND WAS UPDATED.
--- NOTE | 2022-07-19 16:09 | NUR ---
PT STARTING TO SHIVER AGAIN, TEMPERATURE UP TO 99.7F (WAS 97.4 TEMPORAL WHEN RODRIGUEZ WAS PULLED). TYLENOL NOT AVAILABLE, DR. FITZGERALD NOTIFIED AND RECEIVED ORDER FOR IBUPROFEN TO HELP WITH FEVER. WILL CONTINUE TO MONITOR.
--- NOTE | 2022-07-19 17:09 | NUR ---
SHIFT SUMMARY PT HAS CONTINUED TO DO WELL, WORKING WITH PHYSICAL THERAPY THIS AFTERNOON AND SITTING UP AGAIN FOR ABOUT AN HOUR. HER SHIVERING SUBSIDED WITH THE IBUPROFEN AND TEMPERATURE CAME BACK DOWN. RODRIGUEZ WAS REMOVED AND PT HAS BEEN UP TO THE COMMODE TO VOID AND HAD A BM. LUNGS ARE CLEAR, RA, SR, BP STABLE. CENTRAL LINE REMOVED WITHOUT COMPLICATIONS. CONTINUING TO MONITOR.
--- NOTE | 2022-07-19 20:01 | NUR ---
PATIENT AWAKE TALKING WITH FAMILY. NO COMPLAINTS AT THIS TIME. TEMP 97.6. ABLE TO REPOSITION SELF IN BED FOR COMFORT. DRESSING TO RIGHT NECK WITH DRESSING CD&I FROM PREVIOUS CENTRAL LINE.
--- NOTE | 2022-07-20 01:42 | NUR ---
WHILE SLEEPING BIOX DOWN TO 85% OXYGEN. RECOVERING TO 96% WHEN AWAKE. PLACED 2L/NC WHILE SLEEPING. PATIENT VERBALIZED SHE WEARS CPAP AT NIGHT AT HOME. DECLINED TO HAVE CPAP HERE BECAUSE SHE HAS DIFFICULTY WEARING ANY MASK THAT IS NOT LIKE HER MASK AT HOME
[2022-07-20 03:19] LABS: BASOPHILS ABSOLUTE AUTO 0.03 K/mm3 (0.00-0.23); BASOPHILS PERCENT AUTO 0 % (0-2); EOSINOPHILS ABSOLUTE AUTO 0.33 K/mm3 (0.00-0.68); EOSINOPHILS PERCENT AUTO 4 % (0-6); Hematocrit 27.1 % (33.0-51.0); Hemoglobin 8.7 g/dL (11.5-16.0); IMMATURE GRAN ABSOLUTE AUTO 0.06 K/mm3 (0.00-0.10); IMMATURE GRAN PERCENT AUTO 1 % (0-1); LYMPHOCYTES ABSOLUTE AUTO 1.18 K/mm3 (0.84-5.20); LYMPHOCYTES PERCENT AUTO 13 % (21-46); MONOCYTES ABSOLUTE AUTO 0.77 K/mm3 (0.16-1.47); MONOCYTES PERCENT AUTO 8 % (4-13); Mean Corpuscular HGB 26.9 pg (26.0-34.0); Mean Corpuscular HGB Conc 32.1 g/dL (31.5-36.5); Mean Corpuscular Volume 84 fL (80-100); Mean Platelet Volume 10.3 fL (9.1-12.4); NEUTROPHILS ABSOLUTE AUTO 7.05 K/mm3 (1.96-9.15); NEUTROPHILS PERCENT AUTO 75 % (41-73); Platelet Count 369 K/mm3 (150-400); RDW Coefficient Variation 15.4 % (11.7-14.2); RDW Standard Deviation 47.4 fL (35.1-46.3); Red Blood Cell Count 3.24 M/mm3 (3.80-5.20); White Blood Cell Count 9.42 K/mm3 (4.00-11.30)
[2022-07-20 03:34] LABS: Bun/Creatinine Ratio 23.9 (12.0-20.0); Calcium, Blood 8.3 mg/dL (8.5-10.1); Creatinine, Blood 0.84 mg/dL (0.40-1.00); Potassium, Blood 3.4 mmol/L (3.5-5.5)
[2022-07-20 03:56] VITALS: BP 117/63
[2022-07-20 06:49] VITALS: BP 139/67
--- NOTE | 2022-07-20 06:51 | NUR ---
PATIENT TRANSFER TO PCU 5 VIA W/C. NO FEVER DURING THE NIGHT. PLACED ON 2L/NC WHILE SLEEPING DUE TO SLEEP APNEA. NOW THAT PATIENT AWAKE OXYGEN OFF.
--- NOTE | 2022-07-20 07:11 | NUR ---
TRANSFER OF CARE NOTE RECEIVED REPORT FROM REPAIRER PUMP KASSI MCGEE, ALL QUESTIONS ANSWERED. PT SHORTLY ARRIVED IN PCU 05 ~0630 THIS AM. PT ARRIVED VIA WHEELCHAIR AND DID WELL WITH STAND PIVOT TO THE HOSPITAL BED. HAVE REVIEWED REPAIRER PUMP SHIFT ASSESSMENT AND I AM IN AGREEMENT WITH HER FINDINGS. SEE SHIFT SUMMARY FOR MORE DETAILS. WILL REPORT TO DAYSHIFT RN. GIGI MUNOZ UPON ARRIVAL TO PCU.
--- NOTE | 2022-07-20 08:00 | NUR ---
INITIAL ASSESSMENT: Patient is alert and oriented, she appears to be very tired. She reports a mild headache this morning, Tylenol given with AM meds. She reports she has been coughing intermittently, but not bringing anything up. Her oxygen saturations are 100% on RA. BT+, pt states she had a BM yesterday. She is able to void without difficulty. She recently had a lithropsy and stent placed to left ureter, she denies pain in her back or ABD. PPP. She has some swelling to her BLE. VSS. AM meds given with a sip of water. Patient denies other needs at this time. Call light in reach, Daughter at bedside.
[2022-07-20 08:27] VITALS: BP 136/59
--- NOTE | 2022-07-20 10:38 | NUR ---
Update: Dr. Swift has been to see the patient, plan is to go to SNF for antibiotics vs home with ABX. The patient would prefer to go home, Dr. Swift will talk with care management to see what we can make happen. Pt and daughter verbalize good support at home. Patient is OOB to the BSC, she was able to void and have a BM. PT worked with her. She is now in the recliner. She denies other needs at this time. Call light in reach.
[2022-07-20 11:33] VITALS: BP 139/69
[2022-07-20 15:07] VITALS: BP 140/74
--- NOTE | 2022-07-20 16:04 | NUR ---
Summary: Patient has been alert and oriented T/O the shift. She started the shift tired, as the morning progressed she was more alert and has been up in the room with therapy and was able to take a shower. HRR, she was SR in the 70s before her telemetry was DC'd. LS CTA, Biox has been 90-100% on RA. BT+, she had two bowel movements this shift. PPP, she has 2+ pitting edema to BLE-Lasix started this shift. She had one febrile episode this afternoon with a temp of 100.4, medicated with Tylenol. Plan is for the patient to potentially DC tomorrow to SNF when approved.
--- NOTE | 2022-07-20 18:15 | NUR ---
I assumed care of patient at approx 1600, no acute changes noted. Will continue to monitor.
[2022-07-20 19:53] VITALS: BP 139/66
[2022-07-21 03:26] LABS: BASOPHILS ABSOLUTE AUTO 0.03 K/mm3 (0.00-0.23); BASOPHILS PERCENT AUTO 0 % (0-2); EOSINOPHILS ABSOLUTE AUTO 0.23 K/mm3 (0.00-0.68); EOSINOPHILS PERCENT AUTO 3 % (0-6); Hematocrit 26.8 % (33.0-51.0); Hemoglobin 8.8 g/dL (11.5-16.0); IMMATURE GRAN ABSOLUTE AUTO 0.09 K/mm3 (0.00-0.10); IMMATURE GRAN PERCENT AUTO 1 % (0-1); LYMPHOCYTES ABSOLUTE AUTO 1.52 K/mm3 (0.84-5.20); LYMPHOCYTES PERCENT AUTO 18 % (21-46); MONOCYTES ABSOLUTE AUTO 1.02 K/mm3 (0.16-1.47); MONOCYTES PERCENT AUTO 12 % (4-13); Mean Corpuscular HGB 26.5 pg (26.0-34.0); Mean Corpuscular HGB Conc 32.8 g/dL (31.5-36.5); Mean Corpuscular Volume 81 fL (80-100); Mean Platelet Volume 9.7 fL (9.1-12.4); NEUTROPHILS ABSOLUTE AUTO 5.53 K/mm3 (1.96-9.15); NEUTROPHILS PERCENT AUTO 66 % (41-73); Platelet Count 409 K/mm3 (150-400); RDW Coefficient Variation 15.3 % (11.7-14.2); RDW Standard Deviation 45.1 fL (35.1-46.3); Red Blood Cell Count 3.32 M/mm3 (3.80-5.20); White Blood Cell Count 8.42 K/mm3 (4.00-11.30)
[2022-07-21 03:38] VITALS: BP 131/55
[2022-07-21 03:44] LABS: Albumin, Blood 1.8 g/dL (3.4-5.0); Albumin/Globulin Ratio 0.4 (0.8-1.8); Bilirubin, Total 0.6 mg/dL (0.1-1.0); Bun/Creatinine Ratio 24.3 (12.0-20.0); Calcium, Blood 8.2 mg/dL (8.5-10.1); Creatinine, Blood 0.78 mg/dL (0.40-1.00); Globulin, Blood 4.2 g/dL (2.2-4.0); Magnesium, Blood 1.6 mg/dL (1.6-2.4); Potassium, Blood 3.2 mmol/L (3.5-5.5)
--- NOTE | 2022-07-21 05:26 | NUR ---
SHIFT SUMMARY PT A&Ox4, CALLS AND COMMUNICATES NEEDS APPROPRIATELY. BP STABLE, HR 80's, NO TELE, DENIES CP/PRESSURE. SpO2> 92% RA, DENIES SOB. PT CONTINENT OF URINE AND BOWEL, SBA WITH FWW TO BATHROOM. PT HAD NO C/O PAIN THROUGHOUT SHIFT. PT SLEPT COMFORTABLY THROUGHOUT SHIFT. NO OTHER EVENTS, WILL REPORT TO ONCOMING RN.
[2022-07-21 07:42] VITALS: BP 143/70
--- NOTE | 2022-07-21 17:35 | NUR ---
PT ARRIVED TO ROOM VIA WHEEL CHAIR. PT AOX4 AND ABLE TO MAKE NEEDS KNOWN. PRIOR TO ARRIVING IN ROOM ATTEMPT TO PLACE POWERGLIDE HAD NOT BEEN SUCCESSFUL PER PT. PT HAS BEEN SETTLED INTO ROOM AND CALL LIGHT IS WITHIN REACH. WILL CONTINUE TO MONITOR.
[2022-07-21 19:54] VITALS: BP 105/51
[2022-07-22 04:19] VITALS: BP 133/70
[2022-07-22 05:06] LABS: BASOPHILS ABSOLUTE AUTO 0.04 K/mm3 (0.00-0.23); BASOPHILS PERCENT AUTO 0 % (0-2); EOSINOPHILS ABSOLUTE AUTO 0.34 K/mm3 (0.00-0.68); EOSINOPHILS PERCENT AUTO 4 % (0-6); Hematocrit 27.6 % (33.0-51.0); IMMATURE GRAN ABSOLUTE AUTO 0.31 K/mm3 (0.00-0.10); IMMATURE GRAN PERCENT AUTO 3 % (0-1); LYMPHOCYTES ABSOLUTE AUTO 1.72 K/mm3 (0.84-5.20); LYMPHOCYTES PERCENT AUTO 18 % (21-46); MONOCYTES ABSOLUTE AUTO 1.24 K/mm3 (0.16-1.47); MONOCYTES PERCENT AUTO 13 % (4-13); Mean Corpuscular HGB 26.9 pg (26.0-34.0); Mean Corpuscular HGB Conc 32.6 g/dL (31.5-36.5); Mean Corpuscular Volume 82 fL (80-100); Mean Platelet Volume 9.9 fL (9.1-12.4); NEUTROPHILS ABSOLUTE AUTO 5.73 K/mm3 (1.96-9.15); NEUTROPHILS PERCENT AUTO 61 % (41-73); Platelet Count 422 K/mm3 (150-400); RDW Coefficient Variation 15.6 % (11.7-14.2); RDW Standard Deviation 47.6 fL (35.1-46.3); Red Blood Cell Count 3.35 M/mm3 (3.80-5.20); White Blood Cell Count 9.38 K/mm3 (4.00-11.30)
[2022-07-22 05:34] LABS: Magnesium, Blood 1.7 mg/dL (1.6-2.4)
[2022-07-22 05:35] LABS: Albumin, Blood 1.9 g/dL (3.4-5.0); Albumin/Globulin Ratio 0.4 (0.8-1.8); Bilirubin, Total 0.6 mg/dL (0.1-1.0); Calcium, Blood 8.3 mg/dL (8.5-10.1); Creatinine, Blood 0.67 mg/dL (0.40-1.00); Globulin, Blood 4.4 g/dL (2.2-4.0); Potassium, Blood 3.6 mmol/L (3.5-5.5); Total Protein, Blood 6.3 g/dL (6.4-8.2)
--- NOTE | 2022-07-22 06:03 | NUR ---
SACK REPAIRER SUMMARY NO ACUTE EVENTS THIS SHIFT. A&OX4. PATIENT EFFECTIVELY COMMUNICATES NEEDS. VSS. RR EVEN AND UNLABORED ON RA. NS INFUSING AT KVO. NO PAIN REPORTED TO THIS RN. PATIENT APPEARED TO SLEEP WELL THROUGHOUT THE NIGHT. BED LOW AND LOCKED. CALL LIGHT WITHIN REACH. THIS RN WILL CONTINUE TO MONITOR.
[2022-07-22 07:56] VITALS: BP 132/68
[2022-07-22 11:55] LABS: SARS-Cov-2 (COVID-19) PCR, MMC NEGATIVE (NEGATIVE)
[2022-07-22] MEDS ORDERED: MEROPENEM114 IV (13:59)
[2022-07-22] MEDS ORDERED: OMEP20ER PO (14:00)
--- NOTE | 2022-07-22 14:33 | NUR ---
PT DISCHARGE TO FACILITY IS COMPLETE. REPORT GIVEN TO FLACA ZENDEJAS AT FACILITY. PT WILL RECIEVE NEXT DOSE OF ANTIBIOTIC BEFORE LEAVING HOSPITAL. SPOKE WITH FLACA ZENDEJAS WHO SPOKE WITH ADMISSION COORDINATOR ABOUT RX NEEDS. PER REPORT, THEY WILL HAVE NEXT DOSE OF ANTIBIOTIC AVAILABLE BY 0000. PT IS ALERT AND ORIENTED X4. R/A. STAND BY ASSIST BUT CLOSE TO INDEPENDENT. NO QUESTIONS FROM FAMILY OR PT AT THIS TIME.
[2022-07-22 16:27] VITALS: BP 100/54
--- NOTE | 2022-07-22 17:06 | NUR ---
PT MEDICATION ADMINISTRATION COMPLETE. FAMILY IS DRIVING PT TO FACILITY.
== END 2022-07-22 17:03 | DRG 698 ==
LOC: ER 22:01 → ICUW 22:02 → PCU 22:02 → ICUE 22:02 → PCU 07-20 06:31 → MEDS 07-21 17:30
PROVIDERS: Emergency Medicine; Family Medicine; Internal Medicine Critical Care Medicine; ADMIT Internal Medicine
PROC: 3E03329 Introduction of Other Anti-infective into Peripheral Vein, Percutaneous Approach (ICD-10-PCS; principal; 2022-07-16)
PROC: 0T9B70Z Drainage of Bladder with Drainage Device, Via Natural or Artificial Opening (ICD-10-PCS; 2022-07-16)
PROC: 3E033XZ Introduction of Vasopressor into Peripheral Vein, Percutaneous Approach (ICD-10-PCS; 2022-07-16)
PROC: 02HV33Z Insertion of Infusion Device into Superior Vena Cava, Percutaneous Approach (ICD-10-PCS; 2022-07-16)
DX: T83.592A Infection and inflammatory reaction due to indwelling ureteral stent, initial encounter (principal); A41.4 Sepsis due to anaerobes; R65.21 Severe sepsis with septic shock; N39.0 Urinary tract infection, site not specified; E87.1 Hypo-osmolality and hyponatremia; E87.20 Acidosis, unspecified; Z20.822 Contact with and (suspected) exposure to COVID-19; E11.65 Type 2 diabetes mellitus with hyperglycemia; I10 Essential (primary) hypertension; E78.5 Hyperlipidemia, unspecified; G47.33 Obstructive sleep apnea (adult) (pediatric); R06.00 Dyspnea, unspecified; E83.42 Hypomagnesemia; E83.39 Other disorders of phosphorus metabolism; M19.90 Unspecified osteoarthritis, unspecified site; E87.6 Hypokalemia; D64.9 Anemia, unspecified; Z98.890 Other specified postprocedural states; Z99.89 Dependence on other enabling machines and devices; Z88.2 Allergy status to sulfonamides; Z88.8 Allergy status to other drugs, medicaments and biological substances; Z96.0 Presence of urogenital implants; Z99.81 Dependence on supplemental oxygen; Z87.442 Personal history of urinary calculi; Z79.4 Long term (current) use of insulin; Z79.899 Other long term (current) drug therapy; Y83.1 Surgical operation with implant of artificial internal device as the cause of abnormal reaction of the patient, or of later complication, without mention of misadventure at the time of the procedure
CPT/HCPCS: 36415; 36556; 51702; 71045; 74150; 74177; 76705; 80048; 80053; 80202; 81001; 82947; 83605; 83735; 83880; 84100; 84484; 85025; 87040; 87077; 87086; 87186; 93005; 93010; 94760; 94762; 96361; 96365; 96368; 96375; 97110; 97116; 97140; 97162; 99285-25; A9270; C1751; J0696; J0780; J1650; J1815; J1940; J2185; J2405; J3010; J3370; J3475; J7030; J7050; J7060; J7120; P9612; Q9967; U0002

== ENCOUNTER 2023-01-02 08:59 | Emergency (ER) | payer MEDICARE, OTHER ==
[~2023-01-02] VITALS: Ht 162.6 cm; Wt 79.8 kg
[~2023-01-02 08:59] MED LIST changes: +CLIMARA1 EACH TOP; +MEROPENEM114 IV; +OMEP20ER PO; +POTCIT10 PO; +TAMS.4ER PO
[2023-01-02 09:50] LABS: BASOPHILS ABSOLUTE AUTO 0.04 K/mm3 (0.00-0.23); BASOPHILS PERCENT AUTO 1 % (0-2); EOSINOPHILS ABSOLUTE AUTO 0.34 K/mm3 (0.00-0.68); EOSINOPHILS PERCENT AUTO 5 % (0-6); Hematocrit 37.2 % (33.0-51.0); Hemoglobin 11.6 g/dL (11.5-16.0); IMMATURE GRAN ABSOLUTE AUTO 0.03 K/mm3 (0.00-0.10); IMMATURE GRAN PERCENT AUTO 1 % (0-1); LYMPHOCYTES PERCENT AUTO 28 % (21-46); MONOCYTES ABSOLUTE AUTO 0.54 K/mm3 (0.16-1.47); MONOCYTES PERCENT AUTO 8 % (4-13); Mean Corpuscular HGB 26.7 pg (26.0-34.0); Mean Corpuscular HGB Conc 31.2 g/dL (31.5-36.5); Mean Corpuscular Volume 86 fL (80-100); Mean Platelet Volume 9.9 fL (9.1-12.4); NEUTROPHILS ABSOLUTE AUTO 3.72 K/mm3 (1.96-9.15); NEUTROPHILS PERCENT AUTO 58 % (41-73); Platelet Count 283 K/mm3 (150-400); RDW Coefficient Variation 15.7 % (11.7-14.2); RDW Standard Deviation 48.6 fL (35.1-46.3); Red Blood Cell Count 4.34 M/mm3 (3.80-5.20); White Blood Cell Count 6.47 K/mm3 (4.00-11.30)
[2023-01-02 09:54] LABS: Source, Urine Clean Catch
[2023-01-02 09:58] LABS: Appearance, Urine Clear (Clear); Bilirubin, Urine Neg (Neg); Blood, Urine 1+ (Neg); Color, Urine Yellow (P-Yellow); Glucose Qualitative, Urine Neg (Neg); Ketones, Urine Neg (Neg); Leukocyte Esterase, Urine 1+ (Neg); Nitrite, Urine Neg (Neg); Protein, Urine Neg (Neg); Specific Gravity, Urine 1.025 (1.003-1.022); Urobilinogen, Urine NORM (Normal)
[2023-01-02 10:12] LABS: Albumin, Blood 3.3 g/dL (3.4-5.0); Albumin/Globulin Ratio 0.8 (0.8-1.8); Bilirubin, Total 0.4 mg/dL (0.1-1.0); Bun/Creatinine Ratio 17.1 (12.0-20.0); Calcium, Blood 8.7 mg/dL (8.5-10.1); Creatinine, Blood 0.94 mg/dL (0.40-1.00); Globulin, Blood 4.4 g/dL (2.2-4.0); Potassium, Blood 4.2 mmol/L (3.5-5.5); Total Protein, Blood 7.7 g/dL (6.4-8.2)
[2023-01-02 10:14] LABS: Hyaline Casts 0-2 /lpf (0-2)
[2023-01-02 10:18] LABS: Bacteria Mod /hpf; Mucus Light (0-Heavy); Red Blood Cells, Urine 0-2 /hpf (0-2); Renal Epithelial Rare /hpf (0-Rare); Squamous Epithelial Cells Few /hpf (Few)
[2023-01-02] MEDS ORDERED: AMOCLA875 PO (10:55)
[2023-01-02 11:15] VITALS: BP 129/74
== END 2023-01-02 11:16 | disposition home or self-care (01) ==
LOC: ER 08:59
PROVIDERS: Physician Assistant
DX: N39.0 Urinary tract infection, site not specified (principal); E11.9 Type 2 diabetes mellitus without complications; I10 Essential (primary) hypertension; Z88.1 Allergy status to other antibiotic agents; Z88.2 Allergy status to sulfonamides; Z88.8 Allergy status to other drugs, medicaments and biological substances; Z79.899 Other long term (current) drug therapy; Z79.84 Long term (current) use of oral hypoglycemic drugs
CPT/HCPCS: 74177; 80053; 81001; 83690; 85025; 87077; 87086; 87186; 96374-59; 96375; 99284-25; A9270; J1885; J2405; Q9967

== ENCOUNTER → 2023-01-28 | Outpatient (CLI) | payer MEDICARE, OTHER ==
[~2023-01-28] MED LIST changes: +AMOCLA875 PO
[2023-01-29 10:56] LABS: Stool Occult Bld Immuno 1 Negative (NEGATIVE)
== END ==
LOC: LAB SHORT 16:24 → LAB 16:24
PROVIDERS: Family Medicine
DX: Z12.11 Encounter for screening for malignant neoplasm of colon (principal)
CPT/HCPCS: G0328

== ENCOUNTER → 2023-03-27 | Outpatient (CLI) | payer OTHER | LOC: LAB SHORT 14:00 → LAB 14:00 | DX: N39.0 Urinary tract infection, site not specified (principal) | CPT/HCPCS: 87077; 87086; 87186 ==

== ENCOUNTER → 2023-08-09 | Outpatient (CLI) | payer OTHER | LOC: LAB 16:07 → LAB SHORT 16:07 | DX: N39.0 Urinary tract infection, site not specified (principal) | CPT/HCPCS: 87077; 87086; 87186 ==

== ENCOUNTER → 2023-11-01 | Outpatient (CLI) | payer OTHER | LOC: LAB 11:45 → LAB SHORT 11:45 | DX: N39.0 Urinary tract infection, site not specified (principal) | CPT/HCPCS: 87077; 87086; 87186 ==

== ENCOUNTER → 2023-12-06 | Outpatient (CLI) | payer OTHER ==
[2023-12-06 13:02] LABS: BASOPHILS ABSOLUTE AUTO 0.02 K/mm3 (0.00-0.23); BASOPHILS PERCENT AUTO 0 % (0-2); EOSINOPHILS ABSOLUTE AUTO 0.17 K/mm3 (0.00-0.68); EOSINOPHILS PERCENT AUTO 2 % (0-6); Hematocrit 40.9 % (33.0-51.0); Hemoglobin 12.7 g/dL (11.5-16.0); IMMATURE GRAN ABSOLUTE AUTO 0.02 K/mm3 (0.00-0.10); IMMATURE GRAN PERCENT AUTO 0 % (0-1); LYMPHOCYTES PERCENT AUTO 19 % (21-46); MONOCYTES ABSOLUTE AUTO 0.58 K/mm3 (0.16-1.47); MONOCYTES PERCENT AUTO 8 % (4-13); Mean Corpuscular HGB 26.6 pg (26.0-34.0); Mean Corpuscular HGB Conc 31.1 g/dL (31.5-36.5); Mean Corpuscular Volume 86 fL (80-100); Mean Platelet Volume 9.7 fL (9.1-12.4); NEUTROPHILS ABSOLUTE AUTO 5.34 K/mm3 (1.96-9.15); NEUTROPHILS PERCENT AUTO 71 % (41-73); Platelet Count 284 K/mm3 (150-400); RDW Coefficient Variation 15.6 % (11.7-14.2); RDW Standard Deviation 48.7 fL (35.1-46.3); Red Blood Cell Count 4.77 M/mm3 (3.80-5.20); White Blood Cell Count 7.53 K/mm3 (4.00-11.30)
[2023-12-06 13:06] LABS: Albumin, Blood 3.3 g/dL (3.4-5.0); Anion Gap 17 mmol/L (3-11); Blood Urea Nitrogen 26 mg/dL (8-24); Bun/Creatinine Ratio 22.8 (12.0-20.0); CO2, Blood 26 mmol/L (21-32); Calcium, Blood 9.3 mg/dL (8.5-10.1); Chloride, Blood 102 mmol/L (98-108); Creatinine, Blood 1.14 mg/dL (0.40-1.00); Glomerular Filtration Rate 49 (60-); Glucose, Blood 127 mg/dL (70-99); Phosphorus, Blood 4.6 mg/dL (2.5-4.9); Sodium, Blood 141 mmol/L (136-145)
== END ==
LOC: LAB SHORT 12:42 → LAB 12:42
PROVIDERS: Family Medicine
DX: N39.0 Urinary tract infection, site not specified (principal); R10.32 Left lower quadrant pain
CPT/HCPCS: 80069; 85025; 87086

== ENCOUNTER → 2023-12-07 | Outpatient (CLI) | payer OTHER ==
[2023-12-07 15:38] LABS: Adenovirus F 40/41 Not Detected (NOT DETECT); Astrovirus Not Detected (NOT DETECT); Campylobacter Sp Not Detected (NOT DETECT); Cryptosporidium Not Detected (NOT DETECT); Cyclospora Cayetanensis Not Detected (NOT DETECT); E. Coli O157 Not Detected (NOT DETECT); Entamoeba Histolytica Not Detected (NOT DETECT); Enteroaggregative E. coli-EAEC Not Detected (NOT DETECT); Enteropathogenic E. coli-EPEC Not Detected (NOT DETECT); Enterotoxigenic E. coli-ETEC Not Detected (NOT DETECT); Giardia Lamblia Not Detected (NOT DETECT); Norovirus GI/GII Not Detected (NOT DETECT); Plesiomonas Shigelloides Not Detected (NOT DETECT); Rotavirus A Not Detected (NOT DETECT); Salmonella Sp Not Detected (NOT DETECT); Sapovirus Not Detected (NOT DETECT); Shiga Toxin-prod E. coli-STEC Not Detected (NOT DETECT); Shigella/Enteroin E. coli-EIEC Not Detected (NOT DETECT); Vibrio Cholerae Not Detected (NOT DETECT); Vibrio Sp Not Detected (NOT DETECT); Yersinia Enterocolitica Not Detected (NOT DETECT)
== END ==
LOC: LAB SHORT 12:54 → LAB 12:54
PROVIDERS: Family Medicine
DX: R19.7 Diarrhea, unspecified (principal)
CPT/HCPCS: 87507

== ENCOUNTER 2024-01-16 13:40 | Emergency (ER) | payer OTHER ==
[~2024-01-16] VITALS: Ht 160 cm; Wt 80.7 kg
[2024-01-16 14:29] LABS: BASOPHILS ABSOLUTE AUTO 0.02 K/mm3 (0.00-0.23); BASOPHILS PERCENT AUTO 0 % (0-2); EOSINOPHILS ABSOLUTE AUTO 0.19 K/mm3 (0.00-0.68); EOSINOPHILS PERCENT AUTO 2 % (0-6); Hematocrit 40.1 % (33.0-51.0); Hemoglobin 12.3 g/dL (11.5-16.0); IMMATURE GRAN ABSOLUTE AUTO 0.04 K/mm3 (0.00-0.10); IMMATURE GRAN PERCENT AUTO 0 % (0-1); LYMPHOCYTES ABSOLUTE AUTO 2.02 K/mm3 (0.84-5.20); LYMPHOCYTES PERCENT AUTO 17 % (21-46); MONOCYTES ABSOLUTE AUTO 1.21 K/mm3 (0.16-1.47); MONOCYTES PERCENT AUTO 10 % (4-13); Mean Corpuscular HGB 26.6 pg (26.0-34.0); Mean Corpuscular HGB Conc 30.7 g/dL (31.5-36.5); Mean Corpuscular Volume 87 fL (80-100); Mean Platelet Volume 10.1 fL (9.1-12.4); NEUTROPHILS ABSOLUTE AUTO 8.31 K/mm3 (1.96-9.15); NEUTROPHILS PERCENT AUTO 71 % (41-73); Platelet Count 265 K/mm3 (150-400); RDW Standard Deviation 50.9 fL (35.1-46.3); Red Blood Cell Count 4.62 M/mm3 (3.80-5.20); White Blood Cell Count 11.79 K/mm3 (4.00-11.30)
[2024-01-16 14:36] LABS: Source, Urine Clean Catch
[2024-01-16 14:44] LABS: Appearance, Urine Hazy (Clear); Bilirubin, Urine Neg (Neg); Blood, Urine 4+ (Neg); Glucose Qualitative, Urine Neg (Neg); Ketones, Urine Neg (Neg); Leukocyte Esterase, Urine 3+ (Neg); Nitrite, Urine Neg (Neg); Protein, Urine 2+ (Neg); Urobilinogen, Urine NORM (Normal)
[2024-01-16 14:46] LABS: Albumin, Blood 3.3 g/dL (3.4-5.0); Albumin/Globulin Ratio 0.8 (0.8-1.8); Bilirubin, Total 0.6 mg/dL (0.1-1.0); Bun/Creatinine Ratio 15.6 (12.0-20.0); Calcium, Blood 9.1 mg/dL (8.5-10.1); Creatinine, Blood 0.9 mg/dL (0.40-1.00); Potassium, Blood 3.8 mmol/L (3.5-5.5); Total Protein, Blood 7.3 g/dL (6.4-8.2)
[2024-01-16 14:53] LABS: Color, Urine Pale Yellow (P-Yellow)
[2024-01-16 14:55] LABS: Bacteria Many /hpf; Squamous Epithelial Cells Few /hpf (Few); White Blood Cells, Urine 50-100 /hpf (0-5)
[2024-01-16] MEDS ORDERED: FERSU300 PO (16:31)
[2024-01-16] MEDS ORDERED: HYDSUL200 PO (16:33)
[2024-01-16] MEDS ORDERED: NS 1,000 ML IV SCH (17:20)
[2024-01-16] MEDS ORDERED: Ketorolac Tromethamine 15mg Vial IV ONE (17:20)
[2024-01-16] MEDS ORDERED: CefTRIAXone Sodium 2,000 MG in NS 100 ML IV ONE (18:35)
[2024-01-16] MEDS ORDERED: Amoxicillin/Clavulanate K 875 MG Tab PO ONE (18:35)
[2024-01-16] MEDS ORDERED: Ondansetron HCl 2 MG / ML 2ML Vial ONE (22:50)
[2024-01-16] MEDS ORDERED: FentaNYL Citrate 50 MCG/ML 2 ML Injection IV ONE (23:00)
[2024-01-16] MEDS ORDERED: Ondansetron HCl 2 MG / ML 2ML Vial IV ONE (23:00)
[2024-01-16 23:30] VITALS: BP 156/77
== END 2024-01-16 23:48 | disposition short-term general hospital (02) ==
LOC: ER 13:40
PROVIDERS: Physician Assistant
DX: K57.32 Diverticulitis of large intestine without perforation or abscess without bleeding (principal); N13.6 Pyonephrosis; E11.9 Type 2 diabetes mellitus without complications; I10 Essential (primary) hypertension; M19.90 Unspecified osteoarthritis, unspecified site; Z79.84 Long term (current) use of oral hypoglycemic drugs; Z79.899 Other long term (current) drug therapy; Z79.810 Long term (current) use of selective estrogen receptor modulators (SERMs); Z88.2 Allergy status to sulfonamides; Z88.8 Allergy status to other drugs, medicaments and biological substances; Z88.1 Allergy status to other antibiotic agents
CPT/HCPCS: 74177; 80053; 81001; 83690; 85025; 87077; 87086; 87186; 96361; 96365-59; 96375; 99285-25; A9270; J0696; J1885; J2405; J7030; Q9967

== ENCOUNTER 2024-01-27 15:15 | Emergency (ER) | payer OTHER ==
[~2024-01-27] VITALS: Ht 162.6 cm; Wt 80.7 kg
[~2024-01-27 15:15] MED LIST changes: +FERSU300 PO; +HYDSUL200 PO
[2024-01-27 15:44] VITALS: BP 155/79
[2024-01-27 16:30] LABS: Source, Urine Clean Catch
[2024-01-27 16:37] LABS: BASOPHILS ABSOLUTE AUTO 0.07 K/mm3 (0.00-0.23); BASOPHILS PERCENT AUTO 1 % (0-2); EOSINOPHILS ABSOLUTE AUTO 0.41 K/mm3 (0.00-0.68); EOSINOPHILS PERCENT AUTO 5 % (0-6); Hematocrit 39.8 % (33.0-51.0); Hemoglobin 12.5 g/dL (11.5-16.0); IMMATURE GRAN ABSOLUTE AUTO 0.05 K/mm3 (0.00-0.10); IMMATURE GRAN PERCENT AUTO 1 % (0-1); LYMPHOCYTES ABSOLUTE AUTO 2.02 K/mm3 (0.84-5.20); LYMPHOCYTES PERCENT AUTO 25 % (21-46); MONOCYTES ABSOLUTE AUTO 0.69 K/mm3 (0.16-1.47); MONOCYTES PERCENT AUTO 9 % (4-13); Mean Corpuscular HGB Conc 31.4 g/dL (31.5-36.5); Mean Corpuscular Volume 86 fL (80-100); Mean Platelet Volume 9.9 fL (9.1-12.4); NEUTROPHILS PERCENT AUTO 60 % (41-73); Platelet Count 326 K/mm3 (150-400); RDW Coefficient Variation 15.9 % (11.7-14.2); Red Blood Cell Count 4.63 M/mm3 (3.80-5.20); White Blood Cell Count 8.14 K/mm3 (4.00-11.30)
[2024-01-27 16:40] LABS: Appearance, Urine Cloudy (Clear); Bilirubin, Urine Neg (Neg); Blood, Urine 5+ (Neg); Color, Urine Brown (P-Yellow); Glucose Qualitative, Urine Neg (Neg); Ketones, Urine 1+ (Neg); Leukocyte Esterase, Urine 3+ (Neg); Nitrite, Urine Pos (Neg); Protein, Urine 4+ (Neg); Urobilinogen, Urine NORM (Normal)
[2024-01-27 16:48] LABS: Bacteria Many /hpf; Calcium Oxalate Crystals Few /hpf; Red Blood Cells, Urine TNTC /hpf (0-2); Renal Epithelial Rare /hpf (0-Rare); Squamous Epithelial Cells Few /hpf (Few); White Blood Cells, Urine 25-50 /hpf (0-5)
[2024-01-27 16:49] LABS: Amorphous Light (0-Heavy)
[2024-01-27 16:59] LABS: Albumin, Blood 3.2 g/dL (3.4-5.0); Albumin/Globulin Ratio 0.8 (0.8-1.8); Bilirubin, Total 0.4 mg/dL (0.1-1.0); Bun/Creatinine Ratio 15.4 (12.0-20.0); Calcium, Blood 9.1 mg/dL (8.5-10.1); Creatinine, Blood 0.91 mg/dL (0.40-1.00); Potassium, Blood 4.4 mmol/L (3.5-5.5); Total Protein, Blood 7.2 g/dL (6.4-8.2)
[2024-01-27] MEDS ORDERED: Cefpodoxime Proxetil 200 MG Tab PO ONE (18:40)
[2024-01-27] MEDS ORDERED: CEFP200 PO (18:50)
[2024-01-27] MEDS ORDERED: PHENA200 PO (18:51)
== END 2024-01-27 19:36 | disposition home or self-care (01) ==
LOC: ER 15:15
PROVIDERS: Physician Assistant
DX: N13.2 Hydronephrosis with renal and ureteral calculous obstruction (principal); N30.00 Acute cystitis without hematuria; E11.9 Type 2 diabetes mellitus without complications; I10 Essential (primary) hypertension; M19.90 Unspecified osteoarthritis, unspecified site; Z96.0 Presence of urogenital implants; Z79.84 Long term (current) use of oral hypoglycemic drugs; Z79.899 Other long term (current) drug therapy; Z88.1 Allergy status to other antibiotic agents; Z88.8 Allergy status to other drugs, medicaments and biological substances; Z88.2 Allergy status to sulfonamides
CPT/HCPCS: 74177; 80053; 81001; 85025; 87086; 99284-25; A9270; Q9967

== ENCOUNTER → 2024-06-15 | Outpatient (CLI) | payer OTHER ==
[~2024-06-15] MED LIST changes: +PHENA200 PO
[2024-06-17 08:48] LABS: Stool Occult Bld Immuno 1 Negative (NEGATIVE)
== END ==
LOC: LAB 14:56 → LAB SHORT 14:56
PROVIDERS: Family Medicine
DX: D50.9 Iron deficiency anemia, unspecified (principal)
CPT/HCPCS: 82274

== ENCOUNTER 2024-10-02 10:22 | Emergency (ER) | payer OTHER ==
[~2024-10-02] VITALS: Ht 162.6 cm; Wt 86.2 kg
[2024-10-02 11:21] LABS: Source, Urine Clean Catch
[2024-10-02 11:23] LABS: Bilirubin, Urine Neg (Neg); Color, Urine Yellow (P-Yellow); Glucose Qualitative, Urine Neg (Neg); Ketones, Urine Neg (Neg); Leukocyte Esterase, Urine 1+ (Neg); Protein, Urine 2+ (Neg); Specific Gravity, Urine 1.015 (1.003-1.022); Urobilinogen, Urine NORM (Normal)
[2024-10-02 11:30] LABS: BASOPHILS ABSOLUTE AUTO 0.04 K/mm3 (0.00-0.23); BASOPHILS PERCENT AUTO 1 % (0-2); EOSINOPHILS ABSOLUTE AUTO 0.16 K/mm3 (0.00-0.68); EOSINOPHILS PERCENT AUTO 3 % (0-6); Hematocrit 42.3 % (33.0-51.0); Hemoglobin 13.3 g/dL (11.5-16.0); IMMATURE GRAN ABSOLUTE AUTO 0.01 K/mm3 (0.00-0.10); IMMATURE GRAN PERCENT AUTO 0 % (0-1); LYMPHOCYTES ABSOLUTE AUTO 1.34 K/mm3 (0.84-5.20); LYMPHOCYTES PERCENT AUTO 21 % (21-46); MONOCYTES ABSOLUTE AUTO 0.44 K/mm3 (0.16-1.47); MONOCYTES PERCENT AUTO 7 % (4-13); Mean Corpuscular HGB Conc 31.4 g/dL (31.5-36.5); Mean Corpuscular Volume 87 fL (80-100); NEUTROPHILS ABSOLUTE AUTO 4.40 K/mm3 (1.96-9.15); NEUTROPHILS PERCENT AUTO 69 % (41-73); NRBC ABSOLUTE 0.00 K/mm3 (0.00-0.02); NRBC Auto 0.0 /100 WBC (0.0-0.2); Platelet Count 236 K/mm3 (150-400); RDW Coefficient Variation 15.2 % (11.7-14.2); RDW Standard Deviation 48.3 fL (35.1-46.3)
[2024-10-02 11:33] LABS: Red Blood Cells, Urine 0-2 /hpf (0-2)
[2024-10-02 12:22] LABS: Alanine Aminotransfer (ALT/SGP 36.0 U/L (12-78); Albumin, Blood 3.5 g/dL (3.4-5.0); Albumin/Globulin Ratio 0.8 (0.8-1.8); Anion Gap 8.0 mmol/L (3-11); Aspartate Aminotrans (AST/SGOT 19.0 U/L (12-37); Bilirubin, Total 0.4 mg/dL (0.1-1.0); Blood Urea Nitrogen 12.0 mg/dL (8-24); CO2, Blood 27.0 mmol/L (21-32); Calcium, Blood 8.6 mg/dL (8.5-10.1); Chloride, Blood 106.0 mmol/L (98-108); Creatinine, Blood 0.93 mg/dL (0.40-1.00); Globulin, Blood 4.4 g/dL (2.2-4.0); Glucose, Blood 150.0 mg/dL (70-99); Potassium, Blood 3.9 mmol/L (3.5-5.5); Sodium, Blood 137.0 mmol/L (136-145); Total Protein, Blood 7.9 g/dL (6.4-8.2)
[2024-10-02] MEDS ORDERED: Ketorolac Tromethamine 15mg Vial IV ONE (13:55)
[2024-10-02 14:06] VITALS: BP 162/87
== END 2024-10-02 14:11 | disposition home or self-care (01) ==
LOC: ER 10:22
PROVIDERS: Emergency Medicine
DX: N20.0 Calculus of kidney (principal); E11.9 Type 2 diabetes mellitus without complications; Z87.442 Personal history of urinary calculi; Z88.1 Allergy status to other antibiotic agents; Z88.2 Allergy status to sulfonamides; Z88.8 Allergy status to other drugs, medicaments and biological substances; Z79.84 Long term (current) use of oral hypoglycemic drugs; Z79.899 Other long term (current) drug therapy
CPT/HCPCS: 74177; 80053; 81001; 83690; 85025; 87086; 96374; 99284-25; J1885; Q9967

== ENCOUNTER → 2024-12-13 | Outpatient (CLI) | payer OTHER | LOC: LAB SHORT 12:00 → LAB 12:00 | DX: N39.0 Urinary tract infection, site not specified (principal) | CPT/HCPCS: 87077; 87086; 87186 ==

== ENCOUNTER → 2024-12-25 | Outpatient (CLI) | payer OTHER | LOC: LAB 15:29 → LAB SHORT 15:29 | DX: N39.0 Urinary tract infection, site not specified (principal) | CPT/HCPCS: 87077; 87086; 87186 ==

== ENCOUNTER 2024-12-26 10:59 | Emergency (ER) | payer OTHER ==
[~2024-12-26] VITALS: Ht 165.1 cm; Wt 86.2 kg
[2024-12-26 11:38] LABS: BASOPHILS ABSOLUTE AUTO 0.05 K/mm3 (0.00-0.23); BASOPHILS PERCENT AUTO 1 % (0-2); EOSINOPHILS ABSOLUTE AUTO 0.20 K/mm3 (0.00-0.68); EOSINOPHILS PERCENT AUTO 3 % (0-6); Hematocrit 43.0 % (33.0-51.0); Hemoglobin 13.3 g/dL (11.5-16.0); IMMATURE GRAN ABSOLUTE AUTO 0.02 K/mm3 (0.00-0.10); IMMATURE GRAN PERCENT AUTO 0 % (0-1); LYMPHOCYTES ABSOLUTE AUTO 1.96 K/mm3 (0.84-5.20); LYMPHOCYTES PERCENT AUTO 27 % (21-46); MONOCYTES ABSOLUTE AUTO 0.74 K/mm3 (0.16-1.47); MONOCYTES PERCENT AUTO 10 % (4-13); Mean Corpuscular HGB Conc 30.9 g/dL (31.5-36.5); Mean Corpuscular Volume 89 fL (80-100); NEUTROPHILS ABSOLUTE AUTO 4.27 K/mm3 (1.96-9.15); NEUTROPHILS PERCENT AUTO 59 % (41-73); NRBC ABSOLUTE 0.00 K/mm3 (0.00-0.02); NRBC Auto 0.0 /100 WBC (0.0-0.2); Platelet Count 231 K/mm3 (150-400); RDW Coefficient Variation 14.9 % (11.7-14.2); RDW Standard Deviation 48.8 fL (35.1-46.3)
[2024-12-26 11:57] LABS: Source, Urine Clean Catch
[2024-12-26 12:00] LABS: Alanine Aminotransfer (ALT/SGP 34.0 U/L (12-78); Albumin, Blood 3.7 g/dL (3.4-5.0); Albumin/Globulin Ratio 1.1 (0.8-1.8); Anion Gap 11.0 mmol/L (3-11); Aspartate Aminotrans (AST/SGOT 19.0 U/L (12-37); Bilirubin, Total 0.4 mg/dL (0.1-1.0); Blood Urea Nitrogen 16.0 mg/dL (8-24); CO2, Blood 24.0 mmol/L (21-32); Calcium, Blood 9.2 mg/dL (8.5-10.1); Chloride, Blood 105.0 mmol/L (98-108); Creatinine, Blood 0.83 mg/dL (0.40-1.00); Globulin, Blood 3.4 g/dL (2.2-4.0); Glucose, Blood 118.0 mg/dL (70-99); Magnesium, Blood 2.1 mg/dL (1.6-2.4); Potassium, Blood 4.1 mmol/L (3.5-5.5); Sodium, Blood 136.0 mmol/L (136-145); Total Protein, Blood 7.1 g/dL (6.4-8.2)
[2024-12-26 12:02] LABS: Bilirubin, Urine Neg (Neg); Color, Urine Yellow (P-Yellow); Glucose Qualitative, Urine Neg (Neg); Ketones, Urine Neg (Neg); Leukocyte Esterase, Urine Neg (Neg); Protein, Urine 1+ (Neg); Specific Gravity, Urine 1.020 (1.003-1.022); Urobilinogen, Urine NORM (Normal)
[2024-12-26] MEDS ORDERED: Ketorolac Tromethamine 30mg Vial IV ONE (12:15)
[2024-12-26 13:20] VITALS: BP 152/78
== END 2024-12-26 13:40 | disposition home or self-care (01) ==
LOC: ER 10:59
PROVIDERS: Student in an Organized Health Care Education/Training Program
DX: K59.00 Constipation, unspecified (principal); M76.32 Iliotibial band syndrome, left leg; R10.A2 Flank pain, left side; E11.9 Type 2 diabetes mellitus without complications; I10 Essential (primary) hypertension; K57.30 Diverticulosis of large intestine without perforation or abscess without bleeding; Z87.442 Personal history of urinary calculi; Z88.1 Allergy status to other antibiotic agents; Z88.2 Allergy status to sulfonamides; Z88.8 Allergy status to other drugs, medicaments and biological substances; Z79.84 Long term (current) use of oral hypoglycemic drugs; Z79.899 Other long term (current) drug therapy
CPT/HCPCS: 74177; 80053; 83690; 83735; 85025; 96374; 99284-25; J1885; Q9967